=== PATIENT | female | born 1985 | race Caucasian/White ===

== ENCOUNTER 2024-12-17 08:52 | Outpatient (CLI) | payer OTHER, SELFPAY ==
--- OUTSIDE RECORDS SUMMARY | 2023-11-15 03:15 | XMS_ITS ---
Author Organization [facility] Address [address] [place] [address] Care Team Providers Care Aquatics Specialist Name Role Phone Lizzie Reynolds Primary Care Provider ALLERGIES Allergen (clinical drug ingredient) Drug/Non Drug Allergy documented on EMR Reaction Allergy Type Onset Date Status Penicillin rash Drug Allergy Active RESULTS Component Value Reference Range Notes Test, Urine Reviewed date:11/19/2023 10:57:44 AM Interpretation:Normal Performing Lab: Notes/Report: Normal Test, Urine NEGATIVE Stitch Rubber Olvin REARDON Hemoglobin A1c (S/O) ([id number] ) Reviewed date:11/19/2023 10:57:44 AM Interpretation:Normal Performing Lab:[facility] [address] [id number], Phone - [phone], Director - Jairo Notes/Report: Hemoglobin A1c 5.3 4.8-5.6 % . Prediabetes: 5.7 - 6.4 Diabetes: >6.4 Glycemic control for adults with diabetes: <7.0 TSH ([id number]) Reviewed date:11/19/2023 10:57:44 AM Interpretation:Normal Performing Lab:[facility] [place], [address] [place] [id number], Phone - [phone], Director - PhDCristhiani Notes/Report: TSH 0.918 0.450-4.500 uIU/mL Urinalysis, Complete (w/ jayna ro examination) ([id number]) Reviewed date:11/19/2023 10:57:44 AM Interpretation:Abnormal Performing Lab:[facility] [place], [address] [place] [id number], Phone - [phone], Director - [facility] Notes/Report: Specific Shawmut 1.018 1.005-1.030 pH 6.0 5.0-7.5 Urine-Color Yellow Yellow Appearance Clear Clear WBC Esterase Trace Negative Protein Negative Negative/Trace Glucose Negative Negative Ketones Negative Negative Occult Blood Negative Negative Bilirubin Negative Negative Urobilinogen,Semi-Qn 0.2 0.2-1.0 mg/dL Nitrite, Urine Positive Negative Microscopic Examination See below: Micr oscopic was indicated and was performed. Microscopic Examination WBC 0-5 0 - 5 /hpf RBC 3-10 0 - 2 /hpf Epithelial Cells (non renal) 0-10 0 - 10 /hpf Epithelial Cells (renal) Casts None seen None seen /lpf Cast Type Crystals Crystal Type Mucus Threads Bacteria Moderate None seen/Few Yeast Trichomonas Comment Urine Dip, Speedy Gonzalez Reviewed date:11/19/2023 10:57:44 AM Interpretation:Normal Performing Lab: Notes/Report: Normal Leukocyte NEGATIVE Nitrite, Urine NEGATIVE Urobilinogen NEGATIVE Protein NEGATIVE pH Blood NEGATIVE Specific Shawmut 1.01 Ketones NEGATIVE Bilirubin NEGATIVE Glucose NEGATIVE Comment (clear, cloudy, yellow) Clear, yellow Stitch Rubber CBC, Platelet; No Differenti al ([id number]) Reviewed date:11/19/2023 10:57:44 AM Interpretation:Normal [facility]forming [facility] [address], [place] [id number], Phone - [phone], Director - [facility] Notes/Report: WBC 8.8 3.4-10.8 x10E3/uL RBC 4.53 3.77-5.28 x10E6/uL Hemoglobin 13.7 11.1-15.9 g/dL Hematocrit 42.1 34.0-46.6 % MCV 93 79-97 fL MCH 30.2 26.6-33.0 pg MCHC 32.5 31.5-35.7 g/dL RDW 11.9 11.7-15.4 % Platelets 305 150-450 x10E3/uL NRBC Urine Culture, Routine (up t o 2 organisms)([id number]) Reviewed date:11/19/2023 10:57:44 AM Interpretation: Performing Lab:[facility] [place], [address] [place] [id number], Phone - [phone], Director - Jairo Notes/Report: Urine Culture, Routine TNP Test not performed. No urine specimen was received for culture. CONTACTED HERMILO GOLDBERG AT YOUR FACILITY ON 11/16/2023. SEE [id number] FOR [id number] URINALYSIS Specimen Status Report TNP Test not performed. No urine specimen was received for culture. TEST: [id number] Urine Culture, Routine CONTACTED HERMILO GOLDBERG AT YOUR FACILITY ON 11/16/2023. SEE [id number] FOR [id number] URINALYSIS Lipid Panel w/ Chol/HDL Rati o ([id number]) Reviewed date:11/19/2023 10:57:44 AM Interpretation:Normal Performing Lab:[facility] [place], [address] [place] [id number], Phone - [phone], Director - Jairo Notes/Report: Cholesterol, Total 140 100-199 mg/dL Triglycerides 50 0-149 mg/dL HDL Cholesterol 43 >39 mg/dL VLDL Cholesterol Bart 11 5-40 mg/dL LDL Chol Calc ([facility]) 86 0-99 mg/dL LDL Calc Comment: T. Chol/HDL Ratio 3.3 0.0-4.4 ratio T. Chol/HDL Ratio Men Women 1/2 Avg.Risk 3.4 3.3 Avg.Risk 5.0 4.4 2X Avg.Risk 9.6 7.1 3X Avg.Risk 23.4 11.0 Pap age-based (with age-base d GC/CT screen) ([id number]) Reviewed date:11/22/2023 02:26:18 PM Interpretation:Negative Performing Lab:[facility] [place], [address] [place] [address], [place] [id number], Phone - [phone], Director - Maria De Jesus Notes/Report: Clinical Information:SRC:Cervix [id number] Clinical Information:SRC:Cervix [id number] Age Gdln ACOG Testing 30-65 DIAGNOSIS: NEGATIVE FOR INTRAEPITHELIAL LESION OR MALIGNANCY. Specimen adequacy: Satisfact ory for evaluation. No endocervical component is identified. Clinician provided ICD10: Z0 1.419 Performed by: Nia estrada, Terminal Operations Manager (ASCP) . . Note: The Pap smear is a screening test designed to aid in the detection of premalignant and malignant conditions of the uterine cervix. It is not a diagnostic procedure and should not be used as the sole means of detecting cervical cancer. Both false-positive and false-negative reports do occur. . Test Methodology: This liquid based ThinPrep(R) pap test was screened with the use of an image guided system. HPV Aptima Negative Negative This nucleic acid amplification test detects fourteen high-risk HPV types (16,18,31,33,35,39,45,51,52 ,56,58,59,66,68) without differentiation. HPV Genotype Reflex Criteria not met, HPV Genotype not performed. Basic Metabolic Profile (8) ([facility])([id number]) Reviewed date:11/19/2023 10:57:44 AM Interpretation:Normal Performing Lab:[facility] [id number], Phone - [phone], Director - [facility] Notes/Report: Glucose 89 70-99 mg/dL BUN 11 6-24 mg/dL Creatinine 0.79 0.57-1.00 mg/dL eGFR 97 >59 mL/min/1.73 BUN/Creatinine Ratio 14 9-23 Sodium 141 134-144 mmol/L Potassium 4.4 3.5-5.2 mmol/L Chloride 104 96-106 mmol/L Carbon Dioxide, Total 23 20-29 mmol/L Calcium 9.4 8.7-10.2 mg/dL Written Authorization Reviewed date:11/20/2023 02:31:46 PM Interpretation: Performing Lab:[facility] [address] [id number], Phone - [phone], Director - [facility] Notes/Report: Written Authorization No Written Authorization Received. WRITTEN AUTHORIZATION RECEIVED. [facility] LOGGED BY EDI MCCARTY Written Authorization No Written Authorization Received. WRITTEN AUTHORIZATION RECEIVED. AUTHORIZATION RECE[facility]-20-2023 LOGGED BY EDI MCCARTY REASON FOR VISIT Annual Physical + Women's Exam / Pap, BSV - WWE, Lab draw, Patient states she used to be on medication for anxiety but no longer takes it. She denies using any medication for any reason. MEDICATIONS Medication SIG (Take, Route, Frequency, Duration) Notes Start Date End Date Status Sertraline HCl 50 MG 1 tablet Orally Onc e a day at bedtime for 60 days 11/15/2023 Active Mirena (52 MG) 20 MCG/DAY as directed Intrauterine 11/15/2023 Active IMMUNIZATIONS Vaccine Route Administration Date Status Comme nts Tdap: BOOSTRIX (>/=10yrs)(1 dose) IM Intramuscular 11/15/2023 Administered SOCIAL HISTORY Tobacco Use: Social History Observation Description Date Details (start date - stop date) Never Smoker NA - NA Sex Assigned At : Social History Observation Description Sex Assigned At Unknown Tobacco Use/Smoking Question Answer Notes Are you a nonuser Alcohol Questionnaire Question Answer Notes Did you have a drink contain ing alcohol in the past year? Yes How often did you have a dri nk containing alcohol in the past year? Monthly or less (1 point) How many drinks did you have on a typical day when you were drinking in the past year? 1 or 2 drinks (0 point) How often did you have 6 or more drinks on one occasion in the past year? Never (0 point) Points 1 Interpretation Negative PROBLEMS Problem Type ICD Code Onset Dates Problem Status W/U Status Risk SNOMED Code Notes Problem Endometriosis (N80.9) Active confirmed Endometriosis (527620285) VITAL SIGNS Temperature 98.5 degrees Fahrenheit 11/15/19 24 Heart Rate 67 /min 11/15/2023 Oximetry 99 % 11/15/2023 Blood pressure systolic 118 mm Hg 11/15/19 24 Blood pressure diastolic 72 mm Hg 024 Respiratory Rate 14 /min 11/15/2023 Weight 233 lbs 11/15/2023 Height 64 in 11/15/2023 BMI 39.99 11/15/2023 Weight-kg 105.69 kg 11/15/2023 Head Circumference 64 in 11/15/2023 Encounters Encounter Location Date Provider Diagnosis [facility] [address] [place] [phone] 11/15/2023 Lizzie Reynolds Well woman exam Z01.419 ; Encounter for general adult medical examination with abnormal findings Z00.01 ; Mixed anxiety and depressive disorder F41.8 ; Frequent UTI N39.0 ; Screening mammogram for breast cancer Z12.31 ; Screening for cholesterol level Z13.220 ; Diabetes mellitus screening Z13.1 ; IUD check up Z30.431 and Encounter for immunization Z23 ASSESSMENTS Encounter Date Diagnosis Assessment Notes Treatment Notes Treatment Clinical Notes Section Notes 11/15/2023 Well woman exam (ICD-10 - Z01.419) Pelvic/pap: performed today. Will update pt with results of pap as rec'd. BrCA screening: discussed current guidelines, advised and ordered mammogram today. Pt prefers [facility] for this. She will schedule with their facility. CRC screening: N/A, recommend at 45 y/o per guidelines. Contraception: Mirena placed 02/23/18. Pt aware duration of this IUD is 5-8 years. Pt wishes to have it replaced and will contact her PROPERTY MANAGEMENT ACCOUNTANT for this. 11/15/2023 Encounter for general adult medical examination with abnormal findings (ICD-10 - Z00.01) Labs: Last drawn around 2018 or 2019 per pt. Discussed, drawn, and ordered today. Vax: TDaP updated today, declines flu vax. Pelvic/pap: performed today. Will update pt with results of pap as rec'd. BrCA screening: discussed current guidelines, advised and ordered mammogram today. Pt prefers [facility] for this. She will schedule with their facility. CRC screening: N/A, recommend at 45 y/o per guidelines. 11/15/2023 Mixed anxiety and depressive disorder (ICD-10 - F41.8) JESSY 19, PHQ 14. Denies SI, HI, panic attacks. Pt took Wellbutrin (about 10 yrs ago) as only form of tx for mental health but did not find this helpful. After discussion of potential SE, MoA, and indication for SSRI pt is agreeable as discussed and ordered. Sertraline dispensed #60. Aware not to stop abruptly. If tolerating well at 1 week daily use, can take 2 tabs/day total 100mg. F/U 3 wks or sooner PRN. 11/15/2023 Frequent UTI (ICD-10 - N39.0) Last UTI 05/2023, but had 4 in that 1.5 year timeframe previously. Urine dip negative, will get culture as ordered. Encouraged plenty of water intake, urinate about every 3 hours with goal of clear urine, discussed hygiene, and avoid bladder irritants such as ETOH and caffeine. Will call with lab results as rec'd. Pt will call with any further concerns or ssx changes. 11/15/2023 Screening mammogram for breast cancer (ICD-10 - Z12.31) 11/15/2023 Screening for cholesterol level (ICD-10 - Z13.220) 11/15/2023 Diabetes mellitus screening (ICD-10 - Z13.1) 11/15/2023 IUD check up (ICD-10 - Z30.431) Strings noted during pelvic/pap exam. No cervical TTP. Pt verbalized wanting IUD replaced. She was advised to have new IUD placed same day current IUD is removed. Pt will contact PROPERTY MANAGEMENT ACCOUNTANT for this. 11/15/2023 Encounter for immunization (ICD-10 - Z23) PLAN OF TREATMENT Medication Medication Name Sig Start Date Stop Date Notes Sertraline HCl 50 MG 1 tablet Orally Onc e a day at bedtime for 60 days 11/15/2023 Next Appt Details Follow Up: 3 Weeks, Reason: F/U anx/depr Procedure Notes * Category Sub-Category Detail Notes Venipuncture Venipuncture: Pt Position, sitting, Procedure Explained, verbal consent obtained, Standard Precautions Used,23 g butterfly, Location, LT AC Space,# of Attempts 1,Successful,Pressure and Clean Bandage Applied, No Redness/Swelling at Site,Pt Tolerated Well,. Stitch Rubber: Mert REARDON. Progress Notes * Ivelisse ANDREDOB:1985 ( 38 yo F)Acc No.[id number]:11/15/2023 Patient: Tejinder ANDREia Provider: Lizzie Reynolds APRN :1985 Age:38 Y Sex:Female Date:11/15/2023 Address:[address] [place], [place] [id number] Subjective: * Chief Complaints: * Annual Physical + Women's Exam / PapBSV - WWELab drawPatient states she used to be on medication for anxiety but no longer takes it. She denies using any medication for any reason. * HPI: Depression/Anxiety Screening: PHQ-9 (If PHQ-2 positive) Little interest or pleasure in doing things Not at all Feeling down, depressed, or hopeless Not at all Trouble falling or staying asleep, or sleeping too much Nearly every day Feeling tired or having little energy Nearly every day Poor appetite or overeating Nearly every day Feeling bad about yourself or that you are a failure, or have let yourself or your family down Not at all Trouble concentrating on things, such as reading the newspaper or watching television More than half the days Moving or speaking so slowly that other people could have noticed; or the opposite, being so fidgety or restless that you have been moving around a lot more than usual Nearly every day Thoughts that you would be better off or of hurting yourself in some way Not at all Total Score 14 Interpretation Moderate Depression Depression Screening: JESSY-7 (2018 Edition) Feeling nervous, anxious, or on edge Nearly every day Not being able to stop or control worrying More than half the days Worrying too much about different things Nearly every day Trouble relaxing Nearly every day Being so restless that it is hard to sit still Nearly every day Becoming easily annoyed or irritable Nearly every day Feeling afraid as if something awful might happen More than half the days Total JESSY-7 Score 19 Interpretation of Total (15 and over) Severe *: Pt presents to establish and for CPE and WWE. P CP: none. G YN: [facility], unknown provider as it's always different. C ontraceptive use: yes, Mirena placed 2019. L ast pap: around 2019, never abn. L ast labs: around 2019. L ast mammo: never. L ast DXA: N/A. N eeds: never had UTIs before Mirena, but in last 1.5 years had several, last was 05/2023. Tx at [facility] in [place], [place]. Advised to stop caffeine and ETOH. V accines (tdap, flu): TDaP last rec'd about 16 years ago. Does not accept flu shots. C /O anxiety and depression. C hronic issue for her, last tx w/Wellbutrin intermittently during hormonal endometriosis and ovarian cyst treatments. F inds she's very tired affecting ability to complete tasks/duties and constantly worried. R eports difficulty falling and staying asleep. Requests medications. * ROS: General/Constitutional: General Denies:, chills, fatigue, fever. Eyes Denies:, blurred vision. ENT DENIES: , ear(s) pain, hearing decreased, nose congestion/drainage. Cardiovascular DENIES: , irregular heartbeat, palpitations, chest pain or tightness. Respiratory DENIES: , cough, wheezing, shortness of breath. Breast DENIES: , breast lump, breast pain. Gastrointestinal DENIES: , abdominal pain, constipation, diarrhea, nausea, vomiting. Genitourinary DENIES: , dysuria, polyuria. Women Only DENIES: , breast discharge , breast lump , breast pain , dyspareunia , sexual dysfunction , vaginal discharge. Skin DENIES: , itching, rash, concerning/changing lesions. Musculoskeletal DENIES: , back pain, muscle aches. Peripheral Vascular DENIES: , claudication, varicose veins. Neurologic DENIES: , dizziness, headache, weakness. Psychiatric REPORTS: ANXIETY, DEPRESSION, SLEEP DISTURBANCE. DENIES: s ubstance abuse, suicidal thoughts. Endocrine DENIES: , cold intolerance, heat intolerance, polydipsia. Hematology DENIES: , bleeding prolonged, bruising easily, glands swollen. 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 Sexual activity currently sexually active. Last pap smear date 2018. Last mammogram date never. * OB History: Total pregnancies 4. Total living children 2. Miscarriage(s) 2. # 1: 2004, , Primary , daughter. # 2: 2009. # 3 2009. # 4: 2007, Repeat , son. Ectopic 0. * Surgical History: LEEP, ovarian cysts removed [facility] 07/2008Endometriosis ablation 07/2008 * Hospitalization/Major Diagno stic Procedure: 10/2004C-section 09/2017 * Family History: Father: alive, unknown cardiac disease w/stents, distant relationship. Mother: alive, Tricuspid regurgitation. 2 brother(s) , 4 sister(s) - healthy. 1 son(s) , 1 daughter(s) - healthy. . 2nd oldest kid. * Social History: Tobacco Use: Tobacco Use/Smoking Are you a nonuser Habits (drugs/alcohol/caffeine): Caffeine: no . Alcohol: no . Alcohol Questionnaire Did you have a drink containing alcohol in the past year? Yes How often did you have a drink containing alcohol in the past year? Monthly or less (1 point) How many drinks did you have on a typical day when you were drinking in the past year? 1 or 2 drinks (0 point) How often did you have 6 or more drinks on one occasion in the past year? Never (0 point) Points 1 Interpretation Negative Drugs Have you used drugs other than for medical reasons? No * Medications: TakingMirena (52 MG) 20 MCG/DAY Intrauterine Device as directed Intrauterine Medication List reviewed and reconciled with the patientTaking Mirena (52 MG) 20 MCG/DAY Intrauterine Device as directed Intrauterine Medication List reviewed and reconciled with the patient * Allergies: Penicillin: rash - Allergy - Criticality Unknownno[Allergies Verified] Objective: * Vitals: Temp:98.5F, HR:67, Oxygen sat:99%, BP:118/72mm Hg, RR:14/min, Wt:233lbs, Ht:64in, BMI:39.99, Wt-k.69 kg, HC:64in. * Examination: General Examination *: GENERAL APPEARANCE: OBESE, alert and oriented, no acute distress, pleasant, well nourished. HEAD: atraumatic, normocephalic. EYES: extraocular movements intact, conjunctiva clear, sclera non-icteric. NECK/THYROID: neck supple, no thyromegaly. LYMPH NODES: no anterior cervical adenopathy. HEART: S1/S2 normal, regular rate and rhythm, no murmurs, no rubs, no gallops. LUNGS: clear to auscultation, good air movement, no respiratory distress. CHEST: anteroposterior (AP) diameter normal, no deformity. BREASTS: symmetric, no masses, no axillary adenopathy. ABDOMEN: soft, non-tender, normal bowel sounds, non-distended. BACK: non-tender, full range of motion. RECTAL: normal tone. FEMALE GENITOURINARY: radiation protection engineer in room (DAUGHTER), external genitalia unremarkable, vaginal mucosa normal, cervix without lesions/non-tender, bimanual exam unremarkable, IUD strings visible. SKIN: Warm and dry, good turgor, no rashes, no suspicious lesions. EXTREMITIES: no edema, capillary refill normal. PERIPHERAL PULSES: 2+ throughout. NEUROLOGIC: alert, cooperative, moving all extremities spontaneously, non-focal. MUSCULOSKELETAL: no swelling or deformity. PSYCH: affect normal, cognitive function intact, mood normal, *SPEECH/LANGUAGE, clear. Assessment: * Assessment: 1. Encounter for general adult medical examination with abnormal findings - Z00.01 (Primary) 2. Well woman exam - Z01.419 3. Mixed anxiety and depressive disorder - F41.8 4. Frequent UTI - N39.0 5. Screening mammogram for breast cancer - Z12.31 6. Screening for cholesterol level - Z13.220 7. Diabetes mellitus screening - Z13.1 8. IUD check up - Z30.431 9. Encounter for immunization - Z23 Plan: * Treatment: 2. Well woman exam LAB: TSH ([id number]) Value Reference Range TSH 0.918 0.450-4.500 - uIU/mL * This lab was reviewed by Annia Reynolds on 11/19/2023 at 10:57 AM MDT ?LAB: Basic Metabolic Profile (8) ([facility])([id number])* Value Reference Range Glucose, Serum 89 70-99 - mg/dL * BUN 11 6-24 - mg/dL * Creatinine, Serum 0.79 0.57-1.00 - mg/dL * BUN/Creatinine Ratio 14 9-23 - * Sodium, Serum 141 134-144 - mmol/L * Potassium, Serum 4.4 3.5-5.2 - mmol/L * Chloride, Serum 104 96-106 - mmol/L * Carbon Dioxide, Total 23 20-29 - mmol/L * Calcium, Serum 9.4 8.7-10.2 - mg/dL * eGFR 97 >59 - mL/min/1.73 * This lab was reviewed by Annia Reynolds on 11/19/2023 at 10:57 AM MDT ?LAB: CBC, Platelet; No Differential ([id number])* Value Reference Range Hematocrit 42.1 34.0-46.6 - % * Hemoglobin 13.7 11.1-15.9 - g/dL * MCH 30.2 26.6-33.0 - pg * MCHC 32.5 31.5-35.7 - g/dL * MCV 93 79-97 - fL * Platelets 305 150-450 - x10E3/uL * RBC 4.53 3.77-5.28 - x10E6/uL * RDW 11.9 11.7-15.4 - % * WBC 8.8 3.4-10.8 - x10E3/uL * This lab was reviewed by Annia Reynolds on 11/19/2023 at 10:57 AM MDT ?LAB: Pap age-based (with age-based GC/CT screen) ([id number]) (Collection Date & Time - 11/15/2023 09:37 AM)* Value Reference Range HPV Aptima Negative Negative - * . . - * Age Gdln ACOG Testing 30-65 - * This lab was reviewed by Annia Reynolds on 11/22/2023 at 14:26 PM MDT Clinical Notes:Pelvic/pap:performed today. Will update pt with results of pap as rec'd. BrCA screening:discussed current guidelines, advised and ordered mammogram today. Pt prefers [facility]. She will schedule with their facility. CRC screening:N/A, recommend at 45 y/o per guidelines. Contraception:Mirena placed 02/23/18. Pt aware duration of this IUD is 5-8 years. Pt wishes to have it replaced and will contact her PROPERTY MANAGEMENT ACCOUNTANT for this.?3.??Mixed anxiety and depressive disorder?? Start Sertraline HCl Tablet, 50 MG, 1 tablet, Orally, Once a day at bedtime, 60 days, 60 tablets, Refills 0.? Clinical Notes: JESSY 19, PHQ 14. Denies SI, HI, panic attacks. Pt took Wellbutrin (about 10 yrs ago) as only form of tx for mental health but did not find this helpful. After discussion of potential SE, MoA, and indication for SSRI pt is agreeable as discussed and ordered. Sertraline dispensed #60. Aware not to stop abruptly. If tolerating well at 1 week daily use, can take 2 tabs/day total 100mg. F/U 3 wks or sooner PRN.?4.??Frequent UTI?LAB: Urine Culture, Routine (up to 2 organisms)([id number])* Value Reference Range Urine Culture, Routine TNP - * Specimen Status Report TNP - * This lab was reviewed by Annia Reynolds on 11/19/2023 at 10:57 AM T ?LAB: Test, Urine (Collection Date & Time - 11/15/2023 09:02 AM)* Value Reference Range Test, Urine NEGATIVE * Stitch Rubber Olvin REARDON * This lab was reviewed by Annia Reynolds on 11/19/2023 at 10:57 AM MDT ?LAB: Urine Dip, Speedy Gonzalez (Collection Date & Time - 11/15/2023 09:02 AM)* Value Reference Range Leukocyte NEGATIVE * Nitrite, Urine NEGATIVE * Urobilinogen NEGATIVE * Protein NEGATIVE * Blood NEGATIVE * Specific Shawmut 1.01 * Ketones NEGATIVE * Bilirubin NEGATIVE * Glucose NEGATIVE * Comment (clear, cloudy, yellow) Clear, yellow * This lab was reviewed by Annia Reynolds on 11/19/2023 at 10:57 AM MDT Clinical Notes: Last UTI 05/2023, but had 4 in that 1.5 year timeframe previously. Urine dip negative, will get culture as ordered. Encouraged plenty of water intake, urinate about every 3 hours with goal of clear urine, discussed hygiene, and avoid bladder irritants such as ETOH and caffeine. Will call with lab results as rec'd. Pt will call with any further concerns or ssx changes.?5.??Screening mammogram for breast cancer?Imaging: MAMMOGRAM, SCREENING6.??Screening for cholesterol level?LAB: Lipid Panel w/ Chol/HDL Ratio ([id number])* Value Reference Range Cholesterol, Total 140 100-199 - mg/dL * Triglycerides 50 0-149 - mg/dL * HDL Cholesterol 43 >39 - mg/dL * T. Chol/HDL Ratio 3.3 0.0-4.4 - ratio * VLDL Cholesterol Bart 11 5-40 - mg/dL * LDL Chol Calc ([facility]) 86 0-99 - mg/dL * This lab was reviewed by Annia Reynolds on 11/19/2023 at 10:57 AM MDT 7.??Diabetes mellitus screening?LAB: Hemoglobin A1c (S/O) ([id number])* Value Reference Range Hemoglobin A1c 5.3 4.8-5.6 - % * This lab was reviewed by Annia Reynolds on 11/19/2023 at 10:57 AM MDT 8.??IUD check up?? Clinical Notes: Strings noted during pelvic/pap exam. No cervical TTP. Pt verbalized wanting IUD replaced. She was advised to have new IUD placed same day current IUD is removed. Pt will contact PROPERTY MANAGEMENT ACCOUNTANT for this.? * Procedures: Venipuncture: Venipuncture: Pt Position, sitting, ProcedureExplained,verbalconsent obtained, Standard Precautions Used,23 g butterfly, Location, LT AC Space,# ofAttempts 1,Successful,Pressure and Clean Bandage Applied, No Redness/Swellingat Site,Pt Tolerated Well,. Stitch Rubber: Mert MONZON. * Immunizations: Tdap: BOOSTRIX (>/=10yrs)(1 dose) : .5 mL (Dose No:1) (Route: Intramuscular) given by Connie Goldberg on Right Deltoid (Encounter for immunization) * Procedure Codes: 40355 VENIPUNCT, ROUTINE*36058 URINE [id number] TDAP VACCINE >7 [id number] Nicotine Owjcvtkzj4317A BMI Jfhgqhbuc8895Y Cervical Cancer Hpfxedzkm3986X Depression Zfnprwtsk2754E Depression Counseling - declined by [id number] AntiDepressant [id number] Anxiety XriygtigxQMR88 BMI COUNSELING FOR >/=30.6U0200 Screening Papanicolaou smear; obtaining, preparing, and conveyance of cervical or vaginal smear to laboratory * Follow Up: 3 Weeks (Reason: F/U anx/depr) * Billing Information: * Visit Code: 26881 Preventive Care New Pt. Age 40-64. Modifiers: 25 83003 Level 3 New Patient Acute Care. * Procedure Codes: 30862 VENIPUNCT, ROUTINE*. [address] [address]. 311[address] TDAP VACCINE >7 IM. 1036F Nicotine Screening - Non-user (Current). 3008F BMI Screening. 3015F Cervical Cancer Screening. 3353F Depression Screening - POSITIVE Screening (PHQ9 >/= 10). 4060F Depression Counseling. 4064F [place]. 72961 Anxiety Screening. BMI30 BMI COUNSELING FOR >/=30.0. Q0091 Screening Papanicolaou smear; obtaining, preparing, and conveyance of cervical or vaginal smear to laboratory. * Sign off status: Completed true * Provider: Lizzie Reynolds APRN Date: 11/15/2023 History and Physical Notes * HPI (History of Present Illness) Category Sub-Category Detail Notes Category Not es Depression/Anxiety Screening PHQ-9 (If PHQ-2 positive) Little interest or pleasure in doing things: Not at all Feeling down, depressed, or hopeless: No t at all Trouble falling or staying asleep, or sl eeping too much: Nearly every day Feeling tired or having little energy: N early every day Poor appetite or overeating: Nearly ever y day Feeling bad about yourself o r that you are a failure, or have let yourself or your family down: Not at all Trouble concentrating on thi ngs, such as reading the newspaper or watching television: More than half the days Moving or speaking so slowly that other people could have noticed; or the opposite, being so fidgety or restless that you have been moving around a lot more than usual: Nearly every day Thoughts that you would be b tena off or of hurting yourself in some way: Not at all Total Score: 14 Interpretation: Moderate Depression Depression Screening JESSY-7 (2018 Edition) Feelin g nervous, anxious, or on edge: Nearly every day Not being able to stop or control worryi ng: More than half the days Worrying too much about different things : Nearly every day Trouble relaxing: Nearly every day Being so restless that it is hard to sit still: Nearly every day Becoming easily annoyed or irritable: Ne parisa every day Feeling afraid as if something awful efra ht happen: More than half the days Total JESSY-7 Score: 19 Interpretation of Total: (15 and over) S evere Examination Category Sub-Category Detail Notes Category Not es General Examination * GENERAL APPEARANCE: OBESE, alert and oriented, no acute distress, pleasant, well nourished HEAD: atraumatic, normocep halic EYES: extraocular movement s intact, conjunctiva clear, sclera non-icteric NECK/THYROID: neck supple, no thyr omegaly LYMPH NODES: no anterior cervical adenopathy SKIN: Warm and dry, good t urgor, no rashes, no suspicious lesions HEART: S1/S2 normal, regula r rate and rhythm, no murmurs, no rubs, no gallops LUNGS: clear to auscultatio n, good air movement, no respiratory distress CHEST: anteroposterior (AP) diameter normal, no deformity BREASTS: symmetric, no masses , no axillary adenopathy ABDOMEN: soft, non-tender, no rmal bowel sounds, non-distended RECTAL: normal tone BACK: non-tender, full ran ge of motion FEMALE GENITOURINARY: radiation protection engineer in room (DAUGHTER), external genitalia unremarkable, vaginal mucosa normal, cervix without lesions/non-tender, bimanual exam unremarkable, IUD strings visible MUSCULOSKELETAL: no swelling or defor mity EXTREMITIES: no edema, capillary refill normal PERIPHERAL PULSES: 2+ throughout NEUROLOGIC: alert, cooperative, moving all extremities spontaneously, non-focal PSYCH: affect normal, cogni tive function intact, mood normal, *SPEECH/LANGUAGE, clear
--- OUTSIDE RECORDS SUMMARY | 2023-11-19 05:45 | XMS_ITS ---
Author Organization BILLING FACILITY [facility] Address [address] [place] [address] Care Team Providers Care Linux Support Engineer Name Role Phone Lizzie Reynolds Primary Care Provider ALLERGIES Allergen (clinical drug ingredient) Drug/Non Drug Allergy documented on EMR Reaction Allergy Type Onset Date Status Penicillin rash Drug Allergy Active REASON FOR VISIT F/U labs, BSV - TELEPHONE ENCOUNTER MEDICATIONS Medication SIG (Take, Route, Frequency, Duration) Notes Start Date End Date Status Sertraline HCl 50 MG 1 tablet Orally Onc e a day at bedtime for 60 days 11/15/2023 Active Mirena (52 MG) 20 MCG/DAY as directed Intrauterine 11/15/2023 Active VITAL SIGNS Height 64 in 11/19/2023 TELEPHONE ENCOUNTER. Encounters Encounter Location Date Provider Diagnosis [address] [address] 11/19/2023 Lizzie Reynolds Frequent UTI N39.0 ; Person consulting for explanation of examination or test findings Z71.2 ; Diabetes mellitus screening Z13.1 and Screening for cholesterol level Z13.220 ASSESSMENTS Encounter Date Diagnosis Assessment Notes Treatment Notes Treatment Clinical Notes Section Notes 11/19/2023 Frequent UTI (ICD-10 - N39.0) Last UTI 05/2023, but had 4 in that 1.5 year timeframe previously. Currently only has any ssx (bladder pressure) if drinking carbonated/caff einated beverages like Sprite. Denies any ssx today or recently. IH urine dip negative, culture ordered. [facility] UA positive, will await culture results. Encouraged plenty of water intake, urinate about every 3 hours with goal of clear urine, discussed hygiene, and avoid bladder irritants such as ETOH and caffeine. Will call with lab results as rec'd. Pt will call with any further concerns or ssx changes. 11/19/2023 Person consulting for explanation of examination or test findings (ICD-10 - Z71.2) Will call pt with pap and urine culture results when rec'd. 11/19/2023 Diabetes mellitus screening (ICD-10 - Z13.1) a1c at 5.3%, WNL. Excellent results, encouraged good nutrition, daily exercise, weight mgnt, and annual labs. 11/19/2023 Screening for cholesterol level (ICD-10 - Z13.220) 11/2023 labs completed and reviewed w/pt. ASCVD risk scores - current 10-year risk at 0.4%, optimal risk at 0.4%, and lifetime risk at 8%. Excellent results, encouraged good nutrition, daily exercise, weight mgnt, and annual labs. PLAN OF TREATMENT Next Appt Details Follow Up: prn, Reason: Progress Notes * Ivelisse ANDREDOB:1985 ( 38 yo F)Acc No.[id number]:11/19/2023 Patient: THAI Ivelisse Provider: Lizzie Reynolds APRN :1985 Age:38 Y Sex:Female Date:11/19/2023 Address:[address] [place] [address] Subjective: * Chief Complaints: * F/U labsBSV - TELEPHONE ENCOUNTER * HPI: *: Pt presents via TELEPHONE ENCOUNTER for F/U lab results. C all placed at: 1152. C all ended at: 1159. T his encounter was undertaken via [telephone]. I introduced myself as BRITANY Beebe, and greeted the patient by name and then verified their location. We reviewed the appropriateness of virtual care for this visit and the limitations of telemedicine. All issues below were discussed and addressed but no physical exam was performed except as documented. If it was felt the patient should be evaluated [id number], they were directed to the clinic for care either now or at a subsequent visit as indicated below. Verbal consent for telemedicine visit obtained from the patient. * ROS: TELEPHONE ENCOUNTER. * Medical History: * Surgical History: * Hospitalization/Major Diagno stic Procedure: * Medications: TakingMirena (52 MG) 20 MCG/DAY Intrauterine Device as directed Intrauterine Sertraline HCl 50 MG Tablet 1 tablet Orally Once a day at bedtime Taking Mirena (52 MG) 20 MCG/DAY Intrauterine Device as directed Intrauterine Taking Sertraline HCl 50 MG Tablet 1 tablet Orally Once a day at bedtime * Allergies: Penicillin: rash - Allergy - Criticality Unknownno[Allergies Verified] Objective: * Vitals: Ht:64in TELEPHONE ENCOUNTER. * Examination: General Examination *: TELEPHONE ENCOUNTER. Assessment: * Assessment: 1. Person consulting for explanation of examination or test findings - Z71.2 (Primary) 2. Frequent UTI - N39.0 3. Diabetes mellitus screening - Z13.1 4. Screening for cholesterol level - Z13.220 Plan: * Treatment: 2. Frequent UTI Clinical Notes: Last UTI 05/2023, but had 4 in that 1.5 year timeframe previously. Currently only has any ssx (bladder pressure) if drinking carbonated/caffeinated beverages like Sprite. Denies any ssx today or recently. IH urine dip negative, culture ordered. [facility] UA positive, will await culture results. Encouraged plenty of water intake, urinate about every 3 hours with goal of clear urine, discussed hygiene, and avoid bladder irritants such as ETOH and caffeine. Will call with lab results as rec'd. Pt will call with any further concerns or ssx changes. 3. Diabetes mellitus screening Clinical Notes: a1c at 5.3%, WNL. Excellent results, encouraged good nutrition, daily exercise, weight mgnt, and annual labs. 4. Screening for cholesterol level Clinical Notes: 11/2023 labs completed and reviewed w/pt. ASCVD risk scores - current 10-year risk at 0.4%, optimal risk at 0.4%, and lifetime risk at 8%. Excellent results, encouraged good nutrition, daily exercise, weight mgnt, and annual labs. * Procedure Codes: * Follow Up: prn * Billing Information: * Visit Code: 23165 PHN E/M by PHYS 11-20 MIN. Modifiers: 95 * Procedure Codes: * Sign off status: Completed true * Provider: Lizzie Reynolds APRN Date: 11/19/2023 History and Physical Notes * Examination Category Sub-Category Detail Notes Category Not es General Examination * TELEPH ONE ENCOUNTER
--- OUTSIDE RECORDS SUMMARY | 2023-11-22 09:25 | XMS_ITS ---
Author Organization BILLING FACILITY [facility] Address [address] [place] [address] Care Team Providers Care Learning Services Coordinator Name Role Phone Lizzie Reynolds Primary Care [...] ENCOUNTER. Encounters Encounter Location Date Provider Diagnosis [address] [address] 11/22/2023 Lizzie Reynolds Urinary symptom or sign R39.9 ASSESSMENTS Encounter Date Diagnosis Assessment Notes Treatment Notes Treatment Clinical Notes Section Notes 11/22/2023 Urinary symptom or sign (ICD-10 - R39.9) UA in clinic was negative, however given pt concerns culture was ordered to [facility]. Per [facility] notified her they were unable to [...] * Ivelisse ANDREDOB:1985 ( 38 yo F)Acc No.[id number]:11/22/2023 Patient: Ivelisse ANDRE Provider: Lizzie Reynolds APRN :1985 Age:38 Y Sex:Female Date:11/22/2023 Address:[address] [place] [address] Subjective: * Chief Complaints: * F/U lab [...] was felt the patient should be evaluated [id number], they were directed to the clinic for [...] prn * Billing Information: * Visit Code: 74593 PHN E/M by PHYS 11-20 MIN. Modifiers: 95 * Procedure Codes: * Sign off status: Completed true * Provider: Lizzie Reynolds APRN Date: 11/22/2023 History and Physical Notes * Examination Category Sub-Category Detail Notes Category Not es General Examination * TELEPH ONE ENCOUNTER
--- OUTSIDE RECORDS SUMMARY | 2023-12-13 02:15 | XMS_ITS ---
Author Organization BILLING FACILITY [employer] [facility] Address [address] [place] [address] Care Team Providers Care Grounds Cleaner Name Role Phone Lizzie Reynolds Primary Care [...] Active confirmed Mixed anxiety and depressive disorder ([id number]) VITAL SIGNS Height 64 in 12/13/2023 VIRTUAL ENCOUNTER Encounters Encounter Location Date Provider Diagnosis [facility] [address] [place] [address] 12/13/2023 Lizzie Reynolds Mixed anxiety and depressive [...] Next Appt Details Follow Up: prn,3 Months, [place] son: F/U anx and depr Progress Notes * Ivelisse ANDREDOB:1985 ( 38 yo F)Acc No.[id number]:12/13/2023 Patient: Tejinder ANDREia Provider: Lizzie Reynolds APRN :1985 Age:38 Y Sex:Female Date:12/13/2023 Address:[address] [place] [address] Subjective: * Chief Complaints: * Stress / [...] was felt the patient should be evaluated [id number], they were directed to the clinic for [...] depr) * Billing Information: * Visit Code: 77422 TeleMedicine Lvl 3. Modifiers: 95 * Procedure [...] Score: 3 Interpretation: Minimal Depression Depression Screening JSESY-7 (2018 Edition) Feelin g nervous, anxious, or [...]
--- OUTSIDE RECORDS SUMMARY | 2023-12-13 03:15 | XMS_ITS ---
Author Organization BILLING FACILITY [employer] [facility] Address [address] [place] [address] Care Team Providers Care Home Appliances Mechanic Name Role Phone Lizzie Reynolds Primary Care Provider REASON FOR VISIT F/U anxiety and depression Encounters Encounter Location Date Provider Diagnosis [address] [address] 12/13/2023 Lizzie Reynolds PLAN OF TREATMENT No Information Progress Notes * Ivelisse ANDREDOB:1985 ( 39 yo F)Acc No.[id number]:12/13/2023 Patient: NANCIE Ivelisse Provider: Lizzie Reynolds APRN :1985 Age:38 Y Sex:Female Date:12/13/2023 Address:[facility] [address] , [facility] Subjective: * Chief Complaints: * 1. F/U [...]
--- OUTSIDE RECORDS SUMMARY | 2023-12-24 07:29 | XMS_ITS ---
Author Organization BILLING FACILITY [employer] [facility] Address [address] [place] [address] Care Team Providers Care Electrical Logger Name Role Phone Lizzie Reynolds Primary Care Provider [phone] REASON FOR VISIT PRTL: Mammogram Encounters Encounter Location Date Provider Diagnosis [address] [address] 12/24/2023 Lizzie Reynolds PLAN OF TREATMENT No Information Progress Notes * Ivelisse ANDREDOB:1985 ( 38 yo F)Acc No.[id number]:12/24/2023 Patient: Ivelisse ANDRE :1985 Age:38 Y Sex:Female Address:[facility] [address] , [place] [address] Subjective: * Chief Complaints: * PRTL: Mammogram * Medical History: * Surgical History: * Hospitalization/Major Diagno stic Procedure: * Medications: Objective: Assessment: Plan: * Treatment: * Procedure Codes: * true * Date:
--- OUTSIDE RECORDS SUMMARY | 2024-03-11 02:20 | XMS_ITS ---
Author Organization BILLING FACILITY [employer] [facility] Address [address] [place] [address] Care Team Providers Care Powder Coater Name Role Phone Lizzie Reynolds Primary Care Provider REASON FOR VISIT 3 mo F/U sertraline MEDICATIONS Medication SIG (Take, Route, Frequency, Duration) Notes Start Date End Date Status Sertraline HCl 50 MG 1 tablet Orally Onc e a day at bedtime for 90 days Active Mirena (52 MG) 20 MCG/DAY as directed Intrauterine 11/15/2023 Active Encounters Encounter Location Date Provider Diagnosis [address] [address] 03/11/2024 Lizzie Reynolds PLAN OF TREATMENT No Information Progress Notes * Ivelisse ANDREDOB:1985 ( 39 yo F)Acc No.[id number]:03/11/2024 Patient: Ivelisse ANDRE Provider: Lizzie Reynolds APRN :1985 Age:38 Y Sex:Female Date:03/11/2024 Address:[facility] [place] [facility] Subjective: * Chief Complaints: * 1. 3 [...]
--- OUTSIDE RECORDS SUMMARY | 2024-11-13 03:00 | XMS_ITS ---
Author Organization BILLING FACILITY [employer] [facility] Address [address] [place] [address] Care Team Providers Care Pie Topper Name Role Phone Lizzie Reynolds Primary Care Provider REASON FOR VISIT CPE, LABS Encounters Encounter Location Date Provider Diagnosis [address] [address] 11/13/2024 Lizzie Reynolds PLAN OF TREATMENT No Information Progress Notes * Ivelisse ANDREDOB:1985 ( 39 yo F)Acc No.[id number]:11/13/2024 Patient: THAI Ivelisse Provider: Lizzie Reynolds APRN :1985 Age:39 Y Sex:Female Date:11/13/2024 Address:[facility] [address] [facility] Subjective: * Chief Complaints: * 1. CPE, LABS. * Medical History: Objective: Assessment: Plan: * Treatment: * Billing Information: * Visit Code: * Procedure Codes: * The named appointment provid er may or may not be the originator of this progress note, and it is not deemed complete until electronically signed by the appointment provider. Sign off status: Pending * Provider: Lizzie Reynolds APRN Date: 11/13/2024
--- NOTE | ~2024-12-17 | MM_ITS ---
EXAMINATION: MM screening makayla BI w shefali HISTORY: Screening TECHNIQUE: Craniocaudal and mediolateral oblique 3-D tomosynthesis images were obtained and synthetic 2-D images were generated. CAD analysis was submitted and interpreted. COMPARISON: No prior mammogram is available for comparison at this institution. BREAST PARENCHYMAL COMPOSITION: Dense: The breasts are heterogeneously dense, which may obscure small masses FINDINGS: There are obscured right breast masses located centrally, middle- posterior depth. There is a low-density mass inferiorly in the left breast on MLO view, posterior depth. There are no suspicious calcifications or architectural distortion. IMPRESSION: 1. Bilateral breast masses. 2. Additional mammographic views and possible breast ultrasound are recommended. BI-RADS Category 0: Incomplete: Needs additional imaging evaluation. Reviewed, dictated and finalized at location B. ITION SETTER IMPRESSION: 1. Bilateral breast masses. 2. Additional mammographic views and possible breast ultrasound are recommended . BI-RADS Category 0: Incomplete: Needs additional imaging evaluation.
--- OUTSIDE RECORDS SUMMARY | 2024-12-17 09:28 | XMS_ITS | Patient Health Record ---
Author Organization BILLING FACILITY [email or web address] [facility] Address [address] [place] [address] Care Team Providers Care Farmworker Grain Name Role Phone Lizzie Reynolds Primary Care Provider [phone] ALLERGIES Allergen (clinical drug ingredient) Drug/Non Drug Allergy documented on EMR Reaction Allergy Type Onset Date Status Penicillin rash Drug Allergy Active REASON FOR REFERRAL No Information MEDICATIONS Medication SIG (Take, Route, Frequency, Duration) [...] Notes Problem Endometriosis (N80.9) Active confirmed Endometriosis (815920020) Problem Mixed anxiety and depressive disorder (F41.8) Active confirmed Mixed anxie ty and depressive disorder (991651785) Encounters Encounter Location Date Provider Diagnosis [facility] [address] [place] [address] 11/13/2024 [facility] [address] [place] [address] 03/11/2024 [facility] [address] [place] [address] [facility] No Information MEDICAL (GENERAL) HISTORY Medical History History ICD Code Ovarian cyst N83.209 Endometriosis N80.9 Mixed anxiety and depressive disorder F4 1.8 Surgical History Surgery Date(Month/Year) Endometriosis ablation 07/2008 LEEP, ovarian cysts removed [facility] 07/2008 Hospitalization History Reason Date(Month/Year) 09/2017 10/2004
--- OUTSIDE RECORDS SUMMARY | 2024-12-17 09:29 | XMS_ITS | Clinical Summary ---
Author Organization [facility] Address [address] [address] Care Team Providers Care Supervisor Yard Name Role Phone Unavailable Primary Care Provider Unavailabl e Source Comments [facility],non-owned Affiliates and Associated Physician Practices is amultiple site organization consisting of ambulatory clinics and hospital sitesin [place], [place], [place] and [place]. This disclosure is being madepursuant to the Care Everywhere program and may not contain all information available regarding this patient. Last updated [facility] [employer] Allergies Active Allergy Reactions Criticality Noted Date Comments Cefdinir Rash Medium 09/19/2017 Penicillins Rash Medium 09/19/2017 Medications * Be aware that medications may not be up to date on this document. Alwaysverify current medications with the patient. fluticasone propionate (FLONASE) 50 MCG/ACT nasal spray [place] 2 sprays into each nostril once daily 1 bottles 09/19/2017 Active Social History Tobacco Use Types Packs/Day Years Used Date Smoking Tobacco: Never Smokeless Tobacco: Never Comments No Sex and Gender Information Value Date Recorded Sex Assigned at Not on file Legal Sex Female 6:53 AM CDT Gender Identity Not on file Sexual Orientation Not on file Last Filed Vital Signs Vital Sign Reading Time Taken Comments Blood Pressure 108/74 09/19/2017 9:24 AM CDT Pulse - - Temperature 36.8 C (98.2 F) 09/19/2017 9:24 AM CDT Respiratory Rate 16 09/19/2017 9:24 AM CDT Oxygen Saturation - - Inhaled Oxygen Concentration - - Weight 56.7 kg (125 lb) 09/19/2017 9:24 AM CDT Height 162.6 cm (5' 4) 09/19/2017 9:24 AM CDT Body Mass Index 21.46 09/19/2017 9:24 AM CDT Plan of Treatment Health Maintenance Due Date Last Done Comments LIPID TESTING 1985 MAMMOGRAM 1985 HIV SCREENING 04/11/1998 HEPATITIS C SCREENING 04/07/2001 DTAP/TDAP/TD VACCINES (1 - Tdap) 04/11/2002 HEPATITIS B VACCINE (1 of 3 - 19+ 3-dose series) 04/11/2002 HPV VACCINE (1 - 3-dose SCDM series) 04/11/2010 DEPRESSION SCREENING 02/06/2024 COVID-19 VACCINE (1 - 2023-2 5 season) 2024 INFLUENZA VACCINE (#1) 2024 ZOSTER VACCINE (1 of 2) 04/11/2033 HIB VACCINE Aged Out No longer eligi ble based on patient's age to complete this topic MENINGOCOCCAL (Group B) VACC INE SHARED DECISION-MAKING Aged Out No longer eligibl e based on patient's age to complete this topic MENINGOCOCCAL GROUPS A/C/Y/W VACCINE Aged Out No longer eligible b ased on patient's age to complete this topic PNEUMOCOCCAL VACCINE Aged Out No long er eligible based on patient's age to complete this topic Insurance [employer]
== END 2024-12-17 08:53 | disposition home or self-care (01) ==
PROVIDERS: PCP Nurse Practitioner Family; Visit Provider Nurse Practitioner Family
DX: Z12.31 Encounter for screening mammogram for malignant neoplasm of breast (principal); R92.8 Other abnormal and inconclusive findings on diagnostic imaging of breast
CPT/HCPCS: 77063; 77067

== ENCOUNTER 2025-01-27 10:10 | Outpatient (CLI) | payer OTHER, SELFPAY ==
--- OUTSIDE RECORDS SUMMARY | 2023-11-15 03:15 | XMS_ITS ---
Author Organization BILLING FACILITY [facility] Address [address] [place] [address] Care Team Providers Care Aerial Lineman Name Role Phone Lizzie Reynolds Primary Care Provider [phone] ALLERGIES Allergen (clinical drug ingredient) Drug/Non Drug Allergy documented on EMR Reaction Allergy Type Onset Date Status Penicillin rash Drug Allergy Active RESULTS Component Value Reference Range Notes Test, Urine Reviewed date:11/19/2023 10:57:44 AM Interpretation:Normal Performing Lab: Notes/Report: Normal Test, Urine NEGATIVE Supervisor Lace Tearing Olvin REARDON Hemoglobin A1c (S/O) (317122 ) Reviewed date:11/19/2023 10:57:44 AM Interpretation:Normal Performing Lab:[facility] [address] [id number], Phone - [phone], Director - Jairo Notes/Report: Hemoglobin A1c 5.3 4.8-5.6 % . Prediabetes: 5.7 - 6.4 Diabetes: >6.4 Glycemic control for adults with diabetes: <7.0 TSH (692565) Reviewed date:11/19/2023 10:57:44 AM Interpretation:Normal Performing Lab:[facility], [address] [place] [id number], Phone - [phone], Director - PhDCristhiani Notes/Report: TSH 0.918 0.450-4.500 uIU/mL Urinalysis, Complete (w/ jayna ro examination) (085480) Reviewed date:11/19/2023 10:57:44 AM Interpretation:Abnormal Performing Lab:[facility] [place], [address] [place] [id number], Phone - [phone], Director - [facility] Notes/Report: Specific [place] 1.018 1.005-1.030 pH 6.0 5.0-7.5 Urine-Color Yellow [...] NEGATIVE Protein NEGATIVE pH Blood NEGATIVE Specific [place] 1.01 Ketones NEGATIVE Bilirubin NEGATIVE Glucose NEGATIVE Comment (clear, cloudy, yellow) Clear, yellow Supervisor Lace Tearing CBC, Platelet; No Differenti al (850178) Reviewed date:11/19/2023 10:57:44 AM Interpretation:Normal [facility]forming [facility], [address], [place] [id number], Phone - [phone], Director - [facility] Notes/Report: WBC 8.8 3.4-10.8 x10E3/uL RBC 4.53 3.77-5.28 x10E6/uL Hemoglobin 13.7 11.1-15.9 g/dL Hematocrit 42.1 34.0-46.6 % MCV 93 79-97 fL MCH 30.2 26.6-33.0 pg MCHC 32.5 31.5-35.7 g/dL RDW 11.9 11.7-15.4 % Platelets 305 150-450 x10E3/uL NRBC Urine Culture, Routine (up t o 2 organisms)(110866) Reviewed date:11/19/2023 10:57:44 AM Interpretation: Performing Lab:[facility], [address] [place] [id number], Phone - [phone], Director - Jairo Notes/Report: Urine Culture, Routine TNP Test not performed. No urine specimen was received for culture. CONTACTED HERMILO GOLDBERG AT YOUR FACILITY ON 11/16/2023. SEE [id number] FOR 015518 URINALYSIS Specimen Status Report TNP Test not performed. No urine specimen was received for culture. TEST: [id number] Urine Culture, Routine CONTACTED HERMILO GOLDBERG AT YOUR FACILITY ON 11/16/2023. SEE [id number] FOR 744488 URINALYSIS Lipid Panel w/ Chol/HDL Rati o (422249) Reviewed date:11/19/2023 10:57:44 AM Interpretation:Normal Performing Lab:[facility], [address] [place] [id number], Phone - [phone], Director - Jairo Notes/Report: Cholesterol, Total 140 100-199 mg/dL Triglycerides 50 0-149 mg/dL HDL Cholesterol 43 >39 mg/dL VLDL Cholesterol Bart 11 5-40 mg/dL LDL Chol Calc ([facility]) 86 0-99 mg/dL LDL Calc Comment: T. Chol/HDL Ratio 3.3 0.0-4.4 ratio T. Chol/HDL Ratio Men Women 1/2 Avg.Risk 3.4 3.3 Avg.Risk 5.0 4.4 2X Avg.Risk 9.6 7.1 3X Avg.Risk 23.4 11.0 Pap age-based (with age-base d GC/CT screen) (513714) Reviewed date:11/22/2023 02:26:18 PM Interpretation:Negative Performing Lab:[facility], [address] [place] [address], [place] [id number], Phone - [phone], Director - Maria De Jesus Notes/Report: Clinical Information:SRC:Cervix [id number] Clinical Information:SRC:Cervix [id number] Age Gdln ACOG Testing 30-65 DIAGNOSIS: NEGATIVE FOR INTRAEPITHELIAL LESION OR MALIGNANCY. Specimen adequacy: Satisfact ory for evaluation. No endocervical component is identified. Clinician provided ICD10: Z0 1.419 Performed by: Nia estrada, Dual Rate Supervisor (ASCP) . . Note: The Pap smear [...] Genotype not performed. Basic Metabolic Profile (8) ([facility])(869343) Reviewed date:11/19/2023 10:57:44 AM Interpretation:Normal Performing Lab:[facility] [id number], Phone - [phone], Director - [facility] Notes/Report: Glucose 89 70-99 mg/dL BUN 11 6-24 mg/dL Creatinine 0.79 0.57-1.00 mg/dL eGFR 97 >59 mL/min/1.73 BUN/Creatinine Ratio 14 9-23 Sodium 141 134-144 mmol/L Potassium 4.4 3.5-5.2 mmol/L Chloride 104 96-106 mmol/L Carbon Dioxide, Total 23 20-29 mmol/L Calcium 9.4 8.7-10.2 mg/dL Written Authorization Reviewed date:11/20/2023 02:31:46 PM Interpretation: Performing Lab:[facility] [address] [id number], Phone - [phone], Director - [facility] Notes/Report: Written Authorization No Written Authorization Received. WRITTEN AUTHORIZATION RECEIVED. AUTHORIZ[facility] LOGGED BY EDI MCCARTY Written Authorization No Written Authorization Received. WRITTEN AUTHORIZATION RECEIVED. AUTHORIZATION RECEIVED FROM [facility] 11-20-2023 LOGGED BY EDI MCCARTY REASON FOR [...] Notes Problem Endometriosis (N80.9) Active confirmed Endometriosis (434918350) VITAL SIGNS Temperature 98.5 degrees Fahrenheit 11/15/19 24 Heart Rate 67 /min 11/15/2023 Oximetry 99 % 11/15/2023 Blood pressure systolic 118 mm Hg 11/15/19 24 Blood pressure diastolic 72 mm Hg 024 Respiratory Rate 14 /min 11/15/2023 Weight 233 lbs 11/15/2023 Height 64 in 11/15/2023 BMI 39.99 11/15/2023 Weight-kg 105.69 kg 11/15/2023 Head Circumference 64 in 11/15/2023 Encounters Encounter Location Date Provider Diagnosis [facility] [address] [place] [id number] 11/15/2023 Lizzie Reynolds Well woman exam Z01.419 [...] advised and ordered mammogram today. Pt prefers [facility] for this. She will schedule with their facility. CRC screening: N/A, recommend at 45 y/o per guidelines. Contraception: Mirena placed 02/23/18. Pt aware duration of this IUD is 5-8 years. Pt wishes to have it replaced and will contact her CUSTOMS GUARD for this. 11/15/2023 Encounter for general adult medical examination with abnormal findings (ICD-10 - Z00.01) Labs: Last drawn around 2018 or 2019 per pt. Discussed, drawn, and ordered today. Vax: TDaP updated today, declines flu vax. Pelvic/pap: performed today. Will update pt with results of pap as rec'd. BrCA screening: discussed current guidelines, advised and ordered mammogram today. Pt prefers [facility] for this. She will schedule with [...] current IUD is removed. Pt will contact CUSTOMS GUARD for this. 11/15/2023 Encounter for immunization (ICD-10 [...] Applied, No Redness/Swelling at Site,Pt Tolerated Well,. Supervisor Lace Tearing: Mert REARDON. Progress Notes * Ivelisse ANDREDOB:1985 ( 38 yo F)Acc No.[id number]:11/15/2023 Patient: Tejinder ANDREia Provider: Lizzie Reynolds APRN :1985 Age:38 Y Sex:Female Date:11/15/2023 Address:[address] [place], [place] [id number] Subjective: * Chief Complaints: * Annual Physical [...] and WWE. P CP: none. G YN: [facility], unknown provider as it's always different. C ontraceptive use: yes, Mirena placed 2019. L ast pap: around 2019, never abn. L ast labs: around 2019. L ast mammo: never. L ast DXA: N/A. N eeds: never had UTIs before Mirena, but in last 1.5 years had several, last was 05/2023. Tx at [facility] in [place], [place]. Advised to stop caffeine and ETOH. [...] easily, glands swollen. * Medical History: * Manager Poker History: Periods : maybe 2 periods/year with Mirena. Sexual activity currently sexually active. Last pap smear date 2018. Last mammogram date never. * OB History: Total pregnancies 4. Total living children 2. Miscarriage(s) 2. # 1: 2004, , Primary , daughter. # 2: 2009. # 3 2009. # 4: 2007, Repeat , son. Ectopic 0. * Surgical History: LEEP, ovarian cysts removed [facility] 07/2008Endometriosis ablation 07/2008 * Hospitalization/Major Diagno stic [...] of motion. RECTAL: normal tone. FEMALE GENITOURINARY: tunnel kiln firer in room (DAUGHTER), external genitalia unremarkable, vaginal [...] Treatment: 2. Well woman exam LAB: TSH (339843) Value Reference Range TSH 0.918 0.450-4.500 - uIU/mL * This lab was reviewed by Annia Reynolds on 11/19/2023 at 10:57 AM MDT ?LAB: Basic Metabolic Profile (8) ([facility])(578371)* Value Reference Range Glucose, Serum 89 70-99 [...] AM MDT ?LAB: CBC, Platelet; No Differential (301882)* Value Reference Range Hematocrit 42.1 34.0-46.6 - [...] ?LAB: Pap age-based (with age-based GC/CT screen) (835896) (Collection Date & Time - 11/15/2023 09:37 [...] advised and ordered mammogram today. Pt prefers [facility]. She will schedule with their facility. CRC screening:N/A, recommend at 45 y/o per guidelines. Contraception:Mirena placed 02/23/18. Pt aware duration of this IUD is 5-8 years. Pt wishes to have it replaced and will contact her CUSTOMS GUARD for this.?3.??Mixed anxiety and depressive disorder?? Start [...] UTI?LAB: Urine Culture, Routine (up to 2 organisms)(556129)* Value Reference Range Urine Culture, Routine TNP - * Specimen Status Report TNP - * This lab was reviewed by Annia Reynolds on 11/19/2023 at 10:57 AM T ?LAB: Test, Urine (Collection Date & Time - 11/15/2023 09:02 AM)* Value Reference Range Test, Urine NEGATIVE * Supervisor Lace Tearing Olvin REARDON * This lab was reviewed by Annia Reynolds on 11/19/2023 at 10:57 AM MDT ?LAB: Urine Dip, Speedy Gonzalez (Collection Date & Time - 11/15/2023 09:02 AM)* Value Reference Range Leukocyte NEGATIVE * Nitrite, Urine NEGATIVE * Urobilinogen NEGATIVE * Protein NEGATIVE * Blood NEGATIVE * Specific [place] 1.01 * Ketones NEGATIVE * Bilirubin NEGATIVE [...] cholesterol level?LAB: Lipid Panel w/ Chol/HDL Ratio (506213)* Value Reference Range Cholesterol, Total 140 100-199 - mg/dL * Triglycerides 50 0-149 - mg/dL * HDL Cholesterol 43 >39 - mg/dL * T. Chol/HDL Ratio 3.3 0.0-4.4 - ratio * VLDL Cholesterol Bart 11 5-40 - mg/dL * LDL Chol Calc ([facility]) 86 0-99 - mg/dL * This lab was reviewed by Annia Reynolds on 11/19/2023 at 10:57 AM MDT 7.??Diabetes mellitus screening?LAB: Hemoglobin A1c (S/O) (985097)* Value Reference Range Hemoglobin A1c 5.3 4.8-5.6 - % * This lab was reviewed by Annia Reynolds on 11/19/2023 at 10:57 AM MDT 8.??IUD check up?? Clinical Notes: Strings noted during pelvic/pap exam. No cervical TTP. Pt verbalized wanting IUD replaced. She was advised to have new IUD placed same day current IUD is removed. Pt will contact CUSTOMS GUARD for this.? * Procedures: Venipuncture: Venipuncture: Pt Position, sitting, ProcedureExplained,verbalconsent obtained, Standard Precautions Used,23 g butterfly, Location, LT AC Space,# ofAttempts 1,Successful,Pressure and Clean Bandage Applied, No Redness/Swellingat Site,Pt Tolerated Well,. Supervisor Lace Tearing: Mert MONZON. * Immunizations: Tdap: BOOSTRIX (>/=10yrs)(1 dose) : .5 mL (Dose No:1) (Route: Intramuscular) given by Connie Goldberg on Right Deltoid (Encounter for immunization) * Procedure Codes: 66519 VENIPUNCT, ROUTINE*34943 URINE [id number] TDAP VACCINE >7 MP1080H Nicotine Nvkfwklvl1055C BMI Nvvozroju0221T Cervical Cancer Pgbnkwwbb1801E Depression Msuoqugej4448U Depression Counseling - declined by qewlyyw4675J AntiDepressant AQ76158 Anxiety HmstnxetcCHX17 BMI COUNSELING FOR >/=30.5H5287 Screening Papanicolaou smear; obtaining, preparing, and conveyance of cervical or vaginal smear to laboratory * Follow Up: 3 Weeks (Reason: F/U anx/depr) * Billing Information: * Visit Code: 08745 Preventive Care New Pt. Age 40-64. Modifiers: 25 90462 Level 3 New Patient Acute Care. * Procedure Codes: 46188 VENIPUNCT, ROUTINE*. [address] [address] TEST. 55156 TDAP VACCINE >7 IM. 1036F Nicotine Screening - Non-user (Current). 3008F BMI Screening. 3015F Cervical Cancer Screening. 3353F Depression Screening - POSITIVE Screening (PHQ9 >/= 10). 4060F Depression Counseling. 4064F AntiDepressant RX. 22336 Anxiety Screening. BMI30 BMI COUNSELING FOR >/=30.0. [...] full ran ge of motion FEMALE GENITOURINARY: tunnel kiln firer in room (DAUGHTER), external genitalia unremarkable, vaginal mucosa normal, cervix without lesions/non-tender, bimanual exam unremarkable, IUD strings visible MUSCULOSKELETAL: no swelling or defor mity EXTREMITIES: no edema, capillary refill normal PERIPHERAL PULSES: 2+ throughout NEUROLOGIC: alert, cooperative, moving all extremities spontaneously, non-focal PSYCH: affect normal, cogni tive function intact, mood normal, *SPEECH/LANGUAGE, clear
--- OUTSIDE RECORDS SUMMARY | 2023-11-19 05:45 | XMS_ITS ---
Author Organization BILLING FACILITY [employer] [facility] Address [address] [place] [address] Care Team Providers Care Contract Attorney Name Role Phone Lizzie Reynolds Primary Care [...] ENCOUNTER. Encounters Encounter Location Date Provider Diagnosis [address] [address] 11/19/2023 Lizzie Reynolds Frequent UTI N39.0 ; [...] * Ivelisse ANDREDOB:1985 ( 38 yo F)Acc No.[id number]:11/19/2023 Patient: THAI Ivelisse Provider: Lizzie Reynolds APRN :1985 Age:38 Y Sex:Female Date:11/19/2023 Address:[address] [place] [address] Subjective: * Chief Complaints: * F/U labsBSV [...] was felt the patient should be evaluated [id number], they were directed to the clinic for [...] prn * Billing Information: * Visit Code: 75451 PHN E/M by PHYS 11-20 MIN. Modifiers: 95 * Procedure Codes: * Sign off status: Completed true * Provider: Lizzie Reynolds APRN Date: 11/19/2023 History and Physical Notes * Examination Category Sub-Category Detail Notes Category Not es General Examination * TELEPH ONE ENCOUNTER
--- OUTSIDE RECORDS SUMMARY | 2023-11-22 09:25 | XMS_ITS ---
Author Organization BILLING FACILITY [employer] [facility] Address [address] [place] [address] Care Team Providers Care Information Services Consultant Name Role Phone Lizzie Reynolds Primary Care Provider ALLERGIES Allergen (clinical drug ingredient) Drug/Non Drug Allergy documented on EMR Reaction Allergy Type Onset Date Status Penicillin rash Drug Allergy Active REASON FOR VISIT F/U lab results, UTI concerns, BSV - TELEPHONE ENCOUNTER MEDICATIONS Medication SIG (Take, Route, Frequency, Duration) Notes Start Date End Date Status Mirena (52 MG) 20 MCG/DAY as directed Intrauterine 11/15/2023 Active Sertraline HCl 50 MG 1 tablet Orally Onc e a day at bedtime for 60 days 11/15/2023 Active VITAL SIGNS Height 64 in 11/22/2023 TELEPHONE ENCOUNTER. Encounters Encounter Location Date Provider Diagnosis [address] [address] 11/22/2023 Lizzie Reynolds Urinary symptom or sign R39.9 ASSESSMENTS Encounter Date Diagnosis Assessment Notes Treatment Notes Treatment Clinical Notes Section Notes 11/22/2023 Urinary symptom or sign (ICD-10 - R39.9) UA in clinic was negative, however given pt concerns culture was ordered to [facility]. Per COMMUNITY HEALTH EDUCATOR [facility] notified her they were unable to process culture due to wrong collection container but stated they could process UA - to which she gave verbal order for. [facility]'s UA was positive, but they were still unable to process a culture result. Pt called to update of this situation and recommend she repeat urine testing prior to choosing abx to Rx. Pt voiced understanding and agreement with POC as discussed. All questions and concerns were addressed to pt satisfaction. PLAN OF TREATMENT Next Appt Details Follow Up: prn, Reason: Progress Notes * Ivelisse ANDREDOB:1985 ( 38 yo F)Acc No.[id number]:11/22/2023 Patient: Ivelisse ANDRE Provider: Lizzie Reynolds APRN :1985 Age:38 Y Sex:Female Date:11/22/2023 Address:[address] [place] [address] Subjective: * Chief Complaints: * F/U lab results, UTI concernsBSV - TELEPHONE ENCOUNTER * HPI: *: Pt presents via TELEPHONE ENCOUNTER for F/U lab results and UTI concerns. C /O foul odor when urinating, worse in AM, only other ssx is bladder type pressure that only occurs after drinking Sprite. D enies dysuria, fever, flank pain, abdominal pain, urinary hesitancy or frequency, incontinence. C all placed at: 1525. C all ended at: 1545. T his encounter was undertaken via [telephone]. [...] was felt the patient should be evaluated [id number], they were directed to the clinic for care either now or at a subsequent visit as indicated below. Verbal consent for telemedicine visit obtained from the patient. * ROS: General/Constitutional: General Denies:, chills, fatigue, fever. Cardiovascular DENIES: , chest pain or tightness, irregular heartbeat, palpitations. Respiratory DENIES: , cough, shortness of breath, wheezing. Gastrointestinal DENIES: , abdominal pain, constipation, diarrhea, nausea, vomiting. Genitourinary REPORTS: FOUL SMELLING URINE. SEE HPI. , DENIES:, dysuria, flank pain, hematuria, incontinence, nocturia, polyuria, urinary hesitancy, urinary frequency.. Neurologic DENIES:, dizziness, headache. TELEPHONE ENCOUNTER. * Medical History: * Surgical [...] *: TELEPHONE ENCOUNTER. Assessment: * Assessment: 1. Urinary symptom or sign - R39.9 (Primary) Plan: * Treatment: * Procedure Codes: * Follow Up: prn * Billing Information: * Visit Code: 56028 PHN E/M by PHYS 11-20 MIN. Modifiers: 95 * Procedure Codes: * Sign off status: Completed true * Provider: Lizzie Reynolds APRN Date: 11/22/2023 History and Physical Notes * Examination Category Sub-Category Detail Notes Category Not es General Examination * TELEPH ONE ENCOUNTER
--- OUTSIDE RECORDS SUMMARY | 2023-12-13 02:15 | XMS_ITS ---
Author Organization BILLING FACILITY [employer] [facility] Address [address] [place] [address] Care Team Providers Care Home Mortgage Disclosure Act Specialist Name Role Phone Lizzie Reynolds Primary Care Provider ALLERGIES Allergen (clinical drug ingredient) Drug/Non Drug Allergy documented on EMR Reaction Allergy Type Onset Date Status Penicillin rash Drug Allergy Active REASON FOR VISIT Stress / Anxiety / Depression / Sleep, BSV - TELEPHONE ENCOUNTER MEDICATIONS Medication SIG (Take, Route, Frequency, Duration) Notes Start Date End Date Status Mirena (52 MG) 20 MCG/DAY as directed Intrauterine 11/15/2023 Active Sertraline HCl 50 MG 1 tablet Orally Onc e a day at bedtime for 90 days Active PROBLEMS Problem Type ICD Code Onset Dates Problem Status W/U Status Risk SNOMED Code Notes Problem Mixed anxiety and depressive disorder (F41.8) Active confirmed Mixed anxiety and depressive disorder ([id number]) VITAL SIGNS Height 64 in 12/13/2023 VIRTUAL ENCOUNTER Encounters Encounter Location Date Provider Diagnosis [facility] [address] [place] [address] 12/13/2023 Lizzie Reynolds Mixed anxiety and depressive disorder F41.8 ASSESSMENTS Encounter Date Diagnosis Assessment Notes Treatment Notes Treatment Clinical Notes Section Notes 12/13/2023 Mixed anxiety and depressive disorder (ICD-10 - F41.8) 12/13/23 JESSY 6, PHQ 3, with 11/14 results of JESSY 19, PHQ 14. Denies SI, HI, panic attacks. Pt doing much better since starting SSRI, taking sertraline 50mg QD w/o issue. She has a few left, but would like RF sent to her local pharmacy. Aware not to stop abruptly. Encouraged quality nutrition, daily exercise, adequate sleep, and to consider counseling given new added family stresses. Pt voiced understanding and agreement with POC as discussed. All questions and concerns were addressed to pt satisfaction. F/U 3 months or sooner PRN. PLAN OF TREATMENT Medication Medication Name Sig Start Date Stop Date Notes Sertraline HCl 50 MG 1 tablet Orally Onc e a day at bedtime for 90 days Next Appt Details Follow Up: prn,3 Months, [place] son: F/U anx and depr Progress Notes * Ivelisse ANDREDOB:1985 ( 38 yo F)Acc No.[id number]:12/13/2023 Patient: Tejinder ANDREia Provider: Lizzie Reynolds APRN :1985 Age:38 Y Sex:Female Date:12/13/2023 Address:[address] [place] [address] Subjective: * Chief Complaints: * Stress / Anxiety / Depression / SleepBSV - TELEPHONE ENCOUNTER * HPI: Depression/Anxiety Screening: PHQ-9 (If PHQ-2 positive) Little interest or pleasure in doing things Several days Feeling down, depressed, or hopeless Not at all Trouble falling or staying asleep, or sleeping too much Not at all Feeling tired or having little energy Several days Poor appetite or overeating Not at all Feeling bad about yourself or that you are a failure, or have let yourself or your family down Not at all Trouble concentrating on things, such as reading the newspaper or watching television Several days Moving or speaking so slowly that other people could have noticed; or the opposite, being so fidgety or restless that you have been moving around a lot more than usual Not at all Thoughts that you would be better off or of hurting yourself in some way Not at all Total Score 3 Interpretation Minimal Depression Depression Screening: JESSY-7 (2018 Edition) Feeling nervous, anxious, or on edge Several days Not being able to stop or control worrying Several days Worrying too much about different things Several days Trouble relaxing Several days Being so restless that it is hard to sit still Not at all Becoming easily annoyed or irritable Not at all Feeling afraid as if something awful might happen More than half the days Total JESSY-7 Score 6 If you checked any problems, how difficult have they made it for you to do your work, take care of things at home, or get along with other people? Not difficult at all Interpretation of Total (5 to 9) Mild *: Pt presents via VIRTUAL ENCOUNTER for F/U mental health, medication. P adan reports feeling much better since starting sertraline about 3.5 weeks ago. She is sleeping better, doesn't snack/overeat like before, feels more energy especialy in first half of the day, and managing stressful situations better. Since BRIE pt's mother has been dx'd with stage III renal disease and their family dog is experiencing neruological difficulties. Both of these changes have been extremely stressful, however pt feels she can now separate herself from them and try not to control every aspect of the situations. She is doing her best, but not letting the issues consume her as she would have previously. She wishes to continue current medication, no changes. RF needed soon. Denies SI/HI. Gianna estefany joined video call at: 08. V ideo call ended at: 08. T his encounter was undertaken via [video]. I introduced myself as BRITANY Beebe, and greeted the patient by name and then verified their location [parked car]. We reviewed the appropriateness of virtual care for this visit and the limitations of telemedicine. All issues below were discussed and addressed but no physical exam was performed except as documented. If it was felt the patient should be evaluated [id number], they were directed to the clinic for care either now or at a subsequent visit as indicated below. Verbal consent for telemedicine visit obtained from the patient. * ROS: PER HPI. * Medical History: * Surgical History: * Hospitalization/Major Diagno stic Procedure: * Family History: Father: alive, unknown cardiac disease w/stents, distant relationship. Mother: alive, Tricuspid regurgitation, CKD stage III. 2 brother(s) , 4 sister(s) - healthy. 1 son(s) , 1 daughter(s) - healthy. . 2nd oldest kid. * Medications: TakingMirena (52 MG) 20 MCG/DAY [...] Criticality Unknownno[Allergies Verified] Objective: * Vitals: Ht:64in VIRTUAL ENCOUNTER. * Examination: General Examination *: GENERAL APPEARANCE: alert and oriented, no acute distress, pleasant, well nourished. NEUROLOGIC: alert, cooperative. PSYCH: affect normal, cognitive function intact, mood normal. VIRTUAL ENCOUNTER. Assessment: * Assessment: 1. Mixed anxiety and depressive disorder - F41.8 (Primary) Plan: * Treatment: * Procedure Codes: * Follow Up: prn,3 Months (Reason: F/U anx and depr) * Billing Information: * Visit Code: 15685 TeleMedicine Lvl 3. Modifiers: 95 * Procedure Codes: * Sign off status: Completed true * Provider: Lizzie Reynolds APRN Date: 12/13/2023 History and Physical Notes * HPI (History of Present Illness) Category Sub-Category Detail Notes Category Not es Depression/Anxiety Screening PHQ-9 (If PHQ-2 positive) Little interest or pleasure in doing things: Several days Feeling down, depressed, or hopeless: No t at all Trouble falling or staying asleep, or sl eeping too much: Not at all Feeling tired or having little energy: S everal days Poor appetite or overeating: Not at all Feeling bad about yourself o r that you are a failure, or have let yourself or your family down: Not at all Trouble concentrating on thi ngs, such as reading the newspaper or watching television: Several days Moving or speaking so slowly that other people could have noticed; or the opposite, being so fidgety or restless that you have been moving around a lot more than usual: Not at all Thoughts that you would be b tena off or of hurting yourself in some way: Not at all Total Score: 3 Interpretation: Minimal Depression Depression Screening JESSY-7 (2018 Edition) Feelin g nervous, anxious, or on edge: Several days Not being able to stop or control worryi ng: Several days Worrying too much about different things : Several days Trouble relaxing: Several days Being so restless that it is hard to sit still: Not at all Becoming easily annoyed or irritable: No t at all Feeling afraid as if something awful efra ht happen: More than half the days Total JESSY-7 Score: 6 If you checked any problems, how difficult have they made it for you to do your work, take care of things at home, or get along with other people?: Not difficult at all Interpretation of Total: (5 to 9) Mild Examination Category Sub-Category Detail Notes Category Not es General Examination * GENERAL APPEARANCE: alert and oriented, no acute distress, pleasant, well nourished VIRTUAL ENCOUNTER NEUROLOGIC: alert, cooperative PSYCH: affect normal, cogni tive function intact, mood normal
--- OUTSIDE RECORDS SUMMARY | 2023-12-13 03:15 | XMS_ITS ---
Author Organization BILLING FACILITY [employer] [facility] Address [address] [place] [address] Care Team Providers Care Divinity Teacher Name Role Phone Lizzie Reynolds Primary Care Provider [phone] REASON FOR VISIT F/U anxiety and depression Encounters Encounter Location Date Provider Diagnosis [address] [address] 12/13/2023 Lizzie Reynolds PLAN OF TREATMENT No Information Progress Notes * Ivelisse ANDREDOB:1985 ( 39 yo F)Acc No.[id number]:12/13/2023 Patient: THAI Ivelisse Provider: Lizzie Reynolds APRN :1985 Age:38 Y Sex:Female Date:12/13/2023 Address:[facility] [address] [facility] Subjective: * Chief Complaints: * 1. F/U anxiety and depression. * Medical History: Objective: Assessment: Plan: * Treatment: * Billing Information: * Visit Code: * Procedure Codes: * The named appointment provid er may or may not be the originator of this progress note, and it is not deemed complete until electronically signed by the appointment provider. Sign off status: Pending * Provider: Lizzie Reynolds APRN Date: 12/13/2023
--- OUTSIDE RECORDS SUMMARY | 2023-12-24 07:29 | XMS_ITS ---
Author Organization BILLING FACILITY [employer] [facility] Address [address] [place] [address] Care Team Providers Care Busser Name Role Phone Lizzie Reynolds Primary Care Provider REASON FOR VISIT PRTL: Mammogram Encounters Encounter Location Date Provider Diagnosis [address] [address] 12/24/2023 Lizzie Reynolds PLAN OF TREATMENT No Information Progress Notes * Ivelisse CANADADOB:1985 ( 38 yo F)Acc No.[id number]:12/24/2023 Patient: Ivelisse CANADA :1985 Age:38 Y Sex:Female Address:[facility] [address] , [place] [address] Subjective: * Chief Complaints: * PRTL: Mammogram * Medical History: * Surgical History: * Hospitalization/Major Diagno stic Procedure: * Medications: Objective: Assessment: Plan: * Treatment: * Procedure Codes: * true * Date:
--- OUTSIDE RECORDS SUMMARY | 2024-03-11 02:20 | XMS_ITS ---
Author Organization BILLING FACILITY [employer] [facility] Address [address] [place] [address] Care Team Providers Care Tax Compliance Officer Name Role Phone Lizzie Reynolds Primary Care Provider REASON FOR VISIT 3 mo F/U sertraline MEDICATIONS Medication SIG (Take, Route, Frequency, Duration) Notes Start Date End Date Status Sertraline HCl 50 MG 1 tablet Orally Onc e a day at bedtime for 90 days Active Mirena (52 MG) 20 MCG/DAY as directed Intrauterine 11/15/2023 Active Encounters Encounter Location Date Provider Diagnosis [address] [address] 03/11/2024 Lizzie Reynolds PLAN OF TREATMENT No Information Progress Notes * Ivelisse ANDREDOB:1985 ( 39 yo F)Acc No.[id number]:03/11/2024 Patient: Ivelisse ANDRE Provider: Lizzie Reynolds APRN :1985 Age:38 Y Sex:Female Date:03/11/2024 Address:[facility] [address] [facility] Subjective: * Chief Complaints: * 1. 3 mo F/U sertraline. * Medical History: * Medications: Taking Mirena (52 MG) 20 MCG/DAY Intrauterine Device as directed Intrauterine , Taking Sertraline HCl 50 MG Tablet 1 tablet Orally Once a day at bedtime Objective: Assessment: Plan: * Treatment: * Billing Information: * Visit Code: * Procedure Codes: * Sign off status: Completed Addendum: * true * Provider: Lizzie Reynolds APRN Date: 03/11/2024
--- OUTSIDE RECORDS SUMMARY | 2024-11-13 03:00 | XMS_ITS ---
Author Organization BILLING FACILITY [facility] Address [address] [place] [address] Care Team Providers Care Biodiesel Plant Operations Engineer Name Role Phone Lizzie Reynolds Primary Care Provider REASON FOR VISIT CPE, LABS Encounters Encounter Location Date Provider Diagnosis [address] [address] 11/13/2024 Lizzie Reynolds PLAN OF TREATMENT No Information Progress Notes * Ivelisse ANDREDOB:1985 ( 39 yo F)Acc No.[id number]:11/13/2024 Patient: THAI Ivelisse Provider: Lizzie Reynolds APRN :1985 Age:39 Y Sex:Female Date:11/13/2024 Address:[facility] [address] , [facility] Subjective: * Chief Complaints: * 1. CPE, [...]
--- NOTE | ~2025-01-27 | MM_ITS ---
EXAMINATION: MM diagnostic makayla BI w shefali HISTORY: Additional imaging TECHNIQUE: Craniocaudal and mediolateral oblique 3-D tomosynthesis images were obtained and synthetic 2-D images were generated. CAD analysis was submitted and interpreted. Grayscale sonography over the area(s) of interest with color Doppler if there is a finding. COMPARISON: December 17. BREAST PARENCHYMAL COMPOSITION: Dense: The breasts are heterogeneously dense, which may obscure small masses. MAMMOGRAM FINDINGS: There are multiple convex contours are seen in the dense tissue centrally on the right craniocaudal view. They may be minimal the superior minimally inferior to the nipple line. There are no suspicious calcifications. No unexplained architectural distortion is seen. There are no skin or nipple abnormalities identified. There is no adenopathy seen on the images submitted. ULTRASOUND FINDINGS: Sonography through the 12:00/6:00 left breast was performed before the additional mammographic images demonstrated that the finding in question is a skin lesion. Nothing is seen sonographically. Sonography through the slightly 12:00 and slightly 6:00 region was performed. At 12:00, there is a hypoechoic, ovoid mass with parallel orientation. It is quite deep in location and has a maximum dimension of 9 mm. There is no axillary adenopathy. IMPRESSION: Small ovoid mass on the right for which ultrasound-guided core biopsy is recommended. BI-RADS 4 - Suspicious for malignancy. Tissue diagnosis is recommended. Reviewed, dictated and finalized at location A. [employer] IMPRESSION: Small ovoid mass on the right for which ultrasound-guided core biopsy is recomm ended. BI-RADS 4 - Suspicious for malignancy. Tissue diagnosis is recommended.
--- OUTSIDE RECORDS SUMMARY | 2025-01-27 10:43 | XMS_ITS | Patient Health Record ---
Author Organization BILLING FACILITY [employer] [facility] Address [address] [place] [address] Care Team Providers Care Mastic Floor Layer Name Role Phone Lizzie Reynolds Primary Care [...] Notes Problem Endometriosis (N80.9) Active confirmed Endometriosis (951438789) Problem Mixed anxiety and depressive disorder (F41.8) Active confirmed Mixed anxie ty and depressive disorder (764408825) Encounters Encounter Location Date Provider Diagnosis [facility] [address] [place] [address] 11/13/2024 Lizzie Reynolds [facility] [address] [place] [address] 03/11/2024 Lizzie Reynolds PLAN OF TREATMENT No Information MEDICAL (GENERAL) HISTORY Medical History History ICD Code Ovarian cyst N83.209 Endometriosis N80.9 Mixed anxiety and depressive disorder F4 1.8 Surgical History Surgery Date(Month/Year) Endometriosis ablation 07/2008 LEEP, ovarian cysts removed [facility] 07/2008 Hospitalization History Reason Date(Month/Year) 09/2017 10/2004
--- OUTSIDE RECORDS SUMMARY | 2025-01-27 10:44 | XMS_ITS | Data Portability ---
Author Organization [facility] [place] Address [address] [place] [address] Care Team Providers Care Commodity Manager Name Role Phone OFELIA PIZANO Primary Care Provider Assessment Encounter Date Assessment Date Assessment LastModified by Organization Details LastModified Time 04/03/2024 04/03/2024 Annual gynecological exam performed. Patient will come back in a year unless there are new symptoms. [email or web address] Not available 04/03/2024 09:20:41 Plan of Treatment Reminders Order Date Submit Date Provider Last Modified By Organization Details Last Modified Time Details Appointments None record ed. Lab None record ed. Referral None record ed. Procedures None record ed. Surgeries None record ed. Imaging None record ed. Medication Orders None record ed. Patient TargetsNo targets recorded. Patient InstructionsNo instructions recorded. Reason for Referral None Reported. Problems Name Problem SNOMED Code Status Onset Date Resolution Date Notes Provider Name and Address Organization Details Recorded Time Screening for malignant neoplasm of cervix Active 2011 Screening for malignant neoplasms of the cervix;Rec orded Elsewhere: No Locatio n: [facility] Disha rce: EHR Chroni c: N Practice ID: 0001 Billa ble Time: 11:00:00 AM Not Available [facility] 0 14:57:55 Female genital organ symptoms 820250335 Active 2011 Unspecifie d symptom associated with female genital organs;Rec orded Elsewhere: No Locatio n: [facility] Disha rce: EHR Chroni c: N Practice ID: 0001 Billa ble Time: 11:00:00 AM Not Available [facility] 0 14:57:55 Specializ ed medical examinati on Active 2011 Gynecologi josh Examinatio n;Recorded Elsewhere: No Locatio n: [facility] rce: EHR Chroni c: N Practice ID: 0001 Billa ble Time: 11:00:00 AM Not Available [facility] 0 14:57:55 Left lower quadrant pain 251806327 Active 2011 Abdominal pain, left lower quadrant;R ecorded Elsewhere: No Locatio n: [facility] rce: EHR Chroni c: N Practice ID: 0001 Billa ble Time: 01:00:00 PM Not Available [facility] 0 14:57:55 Ill-defin ed intestina l infection Active 2012 No Show Fee;Practi ce ID: 0001 Not Available [facility] 0 14:57:55 Dermatoph ytosis of the body Active 2012 Dermatophy tosis of the body;Recor ded Elsewhere: No Locatio n: [facility] rce: EHR Chroni c: N Practice ID: 0001 Billa ble Time: 03:30:00 PM Not Available [facility] 0 14:57:55 Removal of intrauter ine device Active 2012 REMOVAL OF IUD;Record ed Elsewhere: No Locatio n: [facility] rce: EHR Chroni c: N Practice ID: 0001 Billa ble Time: 11:30:00 AM Not Available [facility] 0 14:57:55 test negative 384187458 Active 2012 examinatio n or test, negative result;Rec orded Elsewhere: No Locatio n: [facility] rce: EHR Chroni c: N Practice ID: 0001 Billa ble Time: 11:30:00 AM Not Available [facility] 0 14:57:[address] Concept Active 2017 Encntr for general adult medical exam w/o abnormal findings;R ecorded Elsewhere: No Locatio n: [facility] rce: EHR Chroni c: N Practice ID: 0001 Billa ble Time: 02:30:00 PM Not Available [facility] 0 14:57:[address] Concept Active 2017 Encntr for access rep exam (general) (routine) w/o abn findings;R ecorded Elsewhere: No Locatio n: [facility] rce: EHR Chroni c: N Practice ID: 0001 Billa ble Time: 02:30:00 PM Not Available [facility] 0 14:57:55 Insertion of intrauter ine contracep tive device Active 2018 Encounter for insertion of intrauteri ne contracept severo device;Rec orded Elsewhere: No Locatio n: [facility] rce: EHR Chroni c: N Practice ID: 0001 Billa ble Time: 01:00:00 PM Not Available [facility] 0 14:57:54 Clinical finding Active 2018 Presence of (intrauter ine) contracept severo device;Rec orded Elsewhere: No Locatio n: [facility] rce: EHR Chroni c: N Practice ID: 0001 Billa ble Time: 01:00:00 PM Not Available [facility] 0 14:57:54 Contracep tive sheath status 366938702 Active 2018 Encounter for routine checking of IUD;Record ed Elsewhere: No Locatio n: [facility] rce: EHR Chroni c: N Practice ID: 0001 Billa ble Time: 03:45:00 PM Not Available [facility] 0 14:57:55 Problem Notes None recorded. Procedures Surgical History Date Name Laterality Status Provider Name and Address Organization Details Recorded Time 12/13/2023 Date of Last Pap Smear completed [facility] 04/03/2024 09:20:06 Imaging Results None recorded. Procedure Notes None recorded. Medical Equipment None Reported. Allergies Allergen ID Allergen Name Allergen Category Reaction Reaction Severity Criticality Documentation Date Start Date Code Code System Note Provider Name and Address Organization Details Recorded Time 62802 cefdinir medicatio n Not available Not available Not available 01/23/2020 41715 RxNorm Comme nt: [facility]at [facility] Cau sativ e Agent : Omnic ef; Not Available [facility] 0 14:14:51 53486 Product containin g penicilli n (product) medicatio n hives Not available Not available 01/23/2020 22180 8001 SNOMED React ion: hives ; Comme nt: [facility]; Not Available [facility] 0 14:14:51 Medications Name Sig Start Date Stop Date Status Note LastModified by Organization Details LastModified Time triamcino lone acetonide 0.5 % topical cream apply by topical route 2 times every day a thin layer to the affected area(s) in the morning and evenging for 2 weeks 02/25 completed Prescrib ed Elsewher e: No Locat ion: [facility] Lidia h[facility] By: jose boudreaux DateTime : 08/17/19 13 02:41:07 PM Not Available Not Available Not Available Lotrisone 1 %-0.05 % topical cream apply by topical route 2 times every day for 2 weeks to the affected and surround ing areas of skin in the morning and evening 08/19 completed Prescrib ed Elsewher e: No Locat ion: [facility] L[facility] h[facility] By: radha boudreaux DateTime : 08/07/19 13 03:30:00 PM Not Available Not Available Not Available Vitamin D2 1,250 mcg (50,000 unit) capsule take 1 capsule by oral route every week 02/25 completed Prescrib ed Elsewher e: No Locat ion: [facility] Lidia h[facility] By: jose boudreaux DateTime : 07/19/19 18 10:27:21 AM Not Available Not Available Not Available sertralin e 50 mg tablet TAKE 1 TABLET BY MOUTH EVERY DAY FOR ANXIETY OR DEPRESSI ON active Not Available Not Available No t Available Women's Multi 18 mg-600 mcg capsule active Prescrib ed Elsewher e: Yes Loca tion: Batshevamio lyndon [facility] By: vineet seaman DateTime : 08/18/19 12 11:00:00 AM Not Available Not Available Not Available Vitals Date Recorded Body weight Body mass index (BMI) Body height Systolic And Diastolic Provider Name and Address Organization Details Last Updated DateTime 04/03/2024 423449.59 g 39.9 kg/m2 162.56 cm 114/75 mm[Hg] Marsha Lorenzana [facility] 04/03/2024 09:25:30 Social History Question Answer Notes LastModified by Organizat ion Details LastModified Time Tobacco Smoking Status Never Smoker Marsha Lorenzana gila [facility] 04/03/2024 09:32:05 Do You Have An Advance Directive? No [email or web address] Information n ot available 04/03/2024 Are You Blind Or Do You Have Difficulty Seeing? No [email or web address] Information n ot available 04/03/2024 What Is Your Level Of Caffeine Consumption? Occasional [email or web address] Information not available 04/03/2024 How Much Tobacco Do You Chew? None [email or web address] Information not available 04/03/2024 In The 14 Days Before Symptom Onset, Have You Had Close Contact With A Laboratory-confirm ed COVID-19 While That Case Was Ill? No [email or web address] Information n ot available 04/03/2024 In The 14 Days Before Symptom Onset, Have You Had Close Contact With A Person Who Is Under Investigation For COVID-19 While That Person Was Ill? No [email or web address] Information not available 04/03/2024 Have You Been To An Area Known To Be High Risk For COVID-19? No [email or web address] Information not available 04/03/2024 Are You Deaf Or Do You Have Serious Difficulty Hearing? No Information not available 04/03/2024 What Type Of Diet Are You Following? REGULAR [email or web address] Information n ot available 04/03/2024 What Is The Highest Grade Or Level Of School You Have Completed Or The Highest Degree You Have Received? [id number] [email or web address] Information not available 04/03/2024 Are There Any Guns Present In Your Home? No [email or web address] Information not available 04/03/2024 Do You Use Protection During Sex? No [email or web address] Information not available 04/03/2024 Do You Use Your Seat Belt Or Car Seat Routinely? Yes [email or web address] Information not available 04/03/2024 Are You Sexually Active? Yes [email or web address] Information not available 04/03/2024 Do You Have Smoke And Carbon Monoxide Detectors In Your Home? Yes Information not available 04/03/2024 How Much Tobacco Do You Smoke? No [email or web address] Information not available 04/03/2024 Do You Use Sunscreen Routinely? Yes Information not available 04/03/2024 Have You Used IV Drugs? No [email or web address] Information not available 04/03/2024 Do You Have Difficulty Walking Or Climbing Stairs? No [email or web address] Information not available 04/03/2024 Sex: Unknown Functional Status Question Answer Note LastModified by Organizat ion Details LastModified Time Do you use any illicit or recreational drugs? No [email or web address] Information not available 04/03/2024 What is your level of alcohol consumption? None [email or web address] Information not available 04/03/2024 Are you currently employed? Yes [email or web address] Information not available 04/03/2024 Are you able to walk independently without assistance or assistive devices? YESWOREST [email or web address] Information not available 04/03/2024 Are you able to care for yourself independently? 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 No [email or web address] Information not available 04/03/2024 What is your exercise level? Occasional [email or web address] Information not available 04/03/2024 Mental Status Question Answer Note LastModified by Organization D etails LastModified Time Do you feel stressed (tense, restless, nervous, or anxious, or unable to sleep at night)? [id number] Information not available 04/03/2024 Family History Nothing Reported Notes:Father: Diabetes melli tus Maternal aunt: Ovarian Cyst Paternal grandmother: Hypertension, Diabetes mellitus, Thyroid disease, Ovarian Cyst Sister: Ovarian Cyst, Cancer, cervical Medical History Condition Response Endometriosis Y Gynecological History Statement/Question Response Abnormal Pap N Date of LMP On BCP's at Conception? N STIs/STDs N Was last menstrual period normal N HPV Vaccine N Current Control Method IUD Are cycles usually normal N Sexually Active? Y Menses Monthly N Age of first menstrual cycle 12 Date of Last Pap Smear 12/13/2023 Sexual Problems? N Obstetrics History GPAL:G 2 P 2 0 0 2 Type Value Full Term 2 Living 2 Total 2 Past Encounters Encounter ID Performer Location Encounter Start Date Encounter Closed Date Diagnosis/Indication Diagnosis SNOMED-CT Code Diagnosis ICD10 Code Diagnosis IMO Codes Diagnosis Note [id number] Roosevelt Griffith MD [place] [address] [address] 04/03/2024 09:09:00 04/03/2024 10:40:45 Contraception care management 828437556 Z30.9 Discussed that a Mirena IUD prevents for up to 8 years, and also helps with heavy periods for up to 5 years in women who choose an IUD for control.Di scussed that her IUD will 2026.Discu ssed the risks, benefits, and alternativ es to Mirena IUD. Discussed insertion and removal process. Discussed bleeding profile. Questions answered.P atient desires to have Mirena IUD removed and replaced sometime next year.Patie nt to RTO for [employer] next when due. Health Concerns Section Related Observation LastModified by Organization Detai ls LastModified Time None Recorded Concern Status LastModified by Organization Details LastModified Time None Recorded Advance Directives Directive N: Payers Insurance Date Sequence Insurance Name Policy Number Policy Bueno Covered Member ID Bueno Member ID Guarantor Name 04/03/2024 1 [facility] [employer] - [employer]ED [employer]EFITS ADMINISTRAT[employer] (PPO) [id number] Cricket Andre [id number] Ivelisse Andre Notes Date Note Type Note Provider Name and Address Organization Details Recorded Time 04/03/2024 text/html Patient here to re-establish care and to see when her Mirena IUD expires.Patient had placed in March 2018.Patient has occasional spotting and would like to have replaced when IUD expires.Pap smear UTD 12/13/23 at PCP.Patient denies concerns today. SUELLEN ESCOBEDO NP [address], [place], [address], [place] [facility] 04/03/2024 10:39:01 OBGyn Episode Ob Episode Information Episode Created Date Number of Fetuses Patient Bloodtype Patient rh Status Prepregnancy Weight lbs Domestic Partner Domestic Partner Phone Father Name Museum Informatics Specialist Status 04/03/19 25 1 CLOSED Fetus Data First Name Last Name Admitted to NICU Weight (g) Sex Living Outcome Pediatric Complications Fetus ID Race Codes Race Delivery Type 6293.58 9 F Full Term [id number] Primary Kaden Calculation Initial Kaden Date Initial Exam Date Initial Exam Provider Initial Ultrasound Date Last Menstrual Period Date Ultra Sound Weeks Gestation 0 Eighteen To Twenty Week Kaden Update Ultra Sound Date Fundal Height At Umbil Quickening Date Ultra Sound Latest Weeks Gestation Final Kaden Confirmed By Final Kaden Confirmed Date Final Kaden Date Ultra Sound Latest Days Gestation 0 0 Menstrual History Last Menstrual Date Menses Monthly On Bcp Conception Prior Menses Frequency Hcg Plus Date Menarche Onset Age Delivery Information Delivery Date Delivery Type Labor Anesthesia Weeks Gestation Incision Type Labor Labor Length Hrs Delivered By Post Complications Tubal Sterilization Discharge Date Comments 5 40 Discharge Information Feeding Method Contraceptive Method Maternal HG B and HCT Levels Ob Episode Information Episode Created Date Number of Fetuses Patient Bloodtype Patient rh Status Prepregnancy Weight lbs Domestic Partner Domestic Partner Phone Father Name Museum Informatics Specialist Status 04/03/19 25 1 CLOSED Fetus Data First Name Last Name Admitted to NICU Weight (g) Sex Living Outcome Pediatric Complications Fetus ID Race Codes Race Delivery Type 6293.58 9 M Full Term [id number] Primary Kaden Calculation Initial Kaden Date Initial Exam Date Initial Exam Provider Initial Ultrasound Date Last Menstrual Period Date Ultra Sound Weeks Gestation 0 Eighteen To Twenty Week Kaden Update Ultra Sound Date Fundal Height At Umbil Quickening Date Ultra Sound Latest Weeks Gestation Final Kaden Confirmed By Final Kaden Confirmed Date Final Kaden Date Ultra Sound Latest Days Gestation 0 0 Menstrual History Last Menstrual Date Menses Monthly On Bcp Conception Prior Menses Frequency Hcg Plus Date Menarche Onset Age Delivery Information Delivery Date Delivery Type Labor Anesthesia Weeks Gestation Incision Type Labor Labor Length Hrs Delivered By Post Complications Tubal Sterilization Discharge Date Comments 8 40 Discharge Information Feeding Method Contraceptive Method Maternal HG B and HCT Levels
--- OUTSIDE RECORDS SUMMARY | 2025-01-27 10:44 | XMS_ITS | Clinical Summary ---
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 This disclosure is being madepursuant to the Care Everywhere program and may not contain all information available regarding this patient. Last updated 17.[facility] Remember The Member Allergies Active Allergy Reactions Criticality Noted Date Comments Cefdinir Rash Medium 09/19/2017 Penicillins Rash Medium 09/19/2017 Medications * Be aware that medications may not be up to date on this document. Alwaysverify current medications with the patient. fluticasone propionate (FLONASE) 50 MCG/ACT nasal spray [place] 2 sprays into each nostril once daily [...] DEPRESSION SCREENING 02/06/2024 COVID-19 VACCINE (1 - 2024-2 6 season) 2024 INFLUENZA VACCINE (#1) 2024 ZOSTER [...]
== END 2025-01-27 10:11 | disposition home or self-care (01) ==
PROVIDERS: PCP Nurse Practitioner Family; Visit Provider Nurse Practitioner Family
DX: R92.8 Other abnormal and inconclusive findings on diagnostic imaging of breast (principal); N63.10 Unspecified lump in the right breast, unspecified quadrant
CPT/HCPCS: 76642; 77062; 77066; G0279